=== PATIENT | male | born 1970 | race Caucasian/White ===

== ENCOUNTER → 2020-08-16 08:47 | Outpatient (BNVA) | payer BC, SELFPAY | PROVIDERS: Visit Provider Internal Medicine Gastroenterology | DX: Z76.89 Persons encountering health services in other specified circumstances (principal) ==

== ENCOUNTER 2020-09-27 06:29 | Outpatient (REF) | payer BC, SELFPAY ==
[2020-09-27 11:25] LABS: MANUAL DIFF FLAG NO
[2020-09-27 11:43] LABS: Basophils Percent Auto 0.8 % (0-2); Eosinophils Absolute Auto 0.2 X10*3/uL (0.0-0.4); Eosinophils Percent Auto 4.4 % (0-4); Hematocrit 43.9 % (42-52); Hemoglobin 14.2 g/dl (14.0-18.0); Imm Gran Abs Auto 0.01 X10*3/uL (0.00-0.03); Imm Gran Pct Auto 0.2 % (0.0-0.4); Lymphocytes Absolute Auto 1.4 X10*3/uL (1.2-4.9); Lymphocytes Percent Auto 28.4 % (20-40); Mean Corpuscular HGB Conc 32.3 g/dl (31.0-36.0); Mean Corpuscular Hemoglobin 29.2 pg (27.0-33.0); Mean Corpuscular Volume 90.1 fL (80-98); Mean Platelet Volume 10.5 fL (9.4-12.4); Monocytes Absolute Auto 0.4 X10*3/uL (0.1-1.2); Monocytes Percent Auto 9.1 % (2-11); Neutrophils Absolute Auto 2.8 X10*3/uL (2.0-8.3); Neutrophils Percent Auto 57.1 % (45-73); Platelet Count 196 X10*3/uL (160-400); Red Blood Count 4.87 X10*6/uL (4.60-5.80); Red Cell Distribution Width 12.6 % (11.0-16.0); White Blood Count 4.8 X10*3/uL (4.8-10.8)
[2020-09-27 12:11] LABS: Alanine Aminotransferase 32 U/L (0-40); Albumin Level 4.3 g/dL (3.5-5.0); Alkaline Phosphatase 72 U/L (39-117); Anion Gap 13 (12-20); Aspartate Amino Transferase 21 U/L (5-37); Bilirubin Total 0.7 mg/dL (0.0-1.0); Blood Urea Nitrogen 14 mg/dL (9-16); Calcium 8.7 mg/dL (8.4-10.2); Carbon Dioxide 28 mmol/L (22-29); Chloride 105 mmol/L (96-108); Cholesterol 199 mg/dL; Estimated Glomerular Filt Rate > 60; Glucose Fasting 92 mg/dL (60-99); HDL Cholesterol 67 mg/dL; LDL Cholesterol Calculated 122 mg/dl; Potassium 4.3 mmol/l (3.3-5.1); Sodium 142 mmol/L (135-145); Total Protein 6.8 g/dL (6.5-8.0); Triglycerides 50 mg/dL
[2020-09-27 12:13] LABS: TSH reflex Free T4 3.84 mIU/mL (0.32-4.0)
== END 2020-09-27 06:30 | disposition home or self-care (01) ==
LOC: HO.HMGCLDS 06:29
PROVIDERS: PCP Nurse Practitioner Family; Visit Provider Nurse Practitioner Family
DX: Z00.00 Encounter for general adult medical examination without abnormal findings (principal)
CPT/HCPCS: 36415; 80053; 80061; 84443; 85025

== ENCOUNTER → 2021-01-10 08:32 | Outpatient (BNVA) | payer BC, SELFPAY | PROVIDERS: PCP Nurse Practitioner Family; Visit Provider Internal Medicine Gastroenterology ==

== ENCOUNTER 2021-02-24 09:24 | Outpatient (REF) | payer BC, SELFPAY | END 2021-02-24 09:25 | disposition home or self-care (01) | LOC: HO.LAB 09:24 | PROVIDERS: Visit Provider Nurse Practitioner Family | DX: R30.9 Painful micturition, unspecified (principal); R31.9 Hematuria, unspecified | CPT/HCPCS: 87086 ==

== ENCOUNTER 2021-04-10 16:23 | Emergency (ER) | payer BC, SELFPAY ==
[2021-04-10 17:21] VITALS: BP 141/92; PULSE 82; RESP 18; TEMP 36.7; O2SAT 100; BMI 29.2
[2021-04-10 18:20] LABS: MANUAL DIFF FLAG NO
[2021-04-10 18:23] LABS: Basophils Absolute Auto 0.1 X10*3/uL (0.0-0.2); Basophils Percent Auto 0.7 % (0-2); Eosinophils Absolute Auto 0.1 X10*3/uL (0.0-0.4); Eosinophils Percent Auto 1.7 % (0-4); Hematocrit 40.7 % (42-52); Hemoglobin 13.4 g/dl (14.0-18.0); Imm Gran Abs Auto 0.01 X10*3/uL (0.00-0.03); Imm Gran Pct Auto 0.1 % (0.0-0.4); Lymphocytes Absolute Auto 1.1 X10*3/uL (1.2-4.9); Lymphocytes Percent Auto 15.4 % (20-40); Mean Corpuscular HGB Conc 32.9 g/dl (31.0-36.0); Mean Corpuscular Hemoglobin 28.9 pg (27.0-33.0); Mean Corpuscular Volume 87.7 fL (80-98); Mean Platelet Volume 9.9 fL (9.4-12.4); Monocytes Absolute Auto 0.4 X10*3/uL (0.1-1.2); Monocytes Percent Auto 5.5 % (2-11); Neutrophils Absolute Auto 5.4 X10*3/uL (2.0-8.3); Neutrophils Percent Auto 76.6 % (45-73); Platelet Count 185 X10*3/uL (160-400); Red Blood Count 4.64 X10*6/uL (4.60-5.80); Red Cell Distribution Width 12.6 % (11.0-16.0); White Blood Count 7.1 X10*3/uL (4.8-10.8)
[2021-04-10 18:30] LABS: Glucose Urine UA NEG (NEG); Leukocyte Esterase Urine TRACE (NEG); Nitrite Urine NEG (NEG); Specific Gravity - Urine 1.015 (1.005-1.025); UACC Culture Trigger YES; Urine Blood 3+ (NEG); Urine Ketones NEG (NEG); Urine Protein NEG (NEG-TRACE)
[2021-04-10 18:36] LABS: Appearance Urine HAZY; Color Urine YELLOW
[2021-04-10 18:41] LABS: Alanine Aminotransferase 21 U/L (0-40); Albumin Level 4.4 g/dL (3.5-5.0); Alkaline Phosphatase 76 U/L (39-117); Anion Gap 10 (12-20); Aspartate Amino Transferase 17 U/L (5-37); Bilirubin Total 0.5 mg/dL (0.0-1.0); Blood Urea Nitrogen 15 mg/dL (9-16); Calcium 9.3 mg/dL (8.4-10.2); Carbon Dioxide 27 mmol/L (22-29); Chloride 107 mmol/L (96-108); Creatinine Clr Calc Pharmacy 102.1; Estimated Glomerular Filt Rate > 60; Glucose Random 91 mg/dL (60-115); Potassium 4.2 mmol/L (3.3-5.1); Sodium 140 mmol/L (135-145); Total Protein 6.9 g/dL (6.5-8.0)
[2021-04-10 18:51] LABS: Bacteria Urine TRACE /LPF; Squamous Epithelial Cell Urine 1+ /LPF
--- NOTE | 2021-04-10 20:02 | PC.NURSE ---
PT WAS BLADDER SCANNED FOR 111ML OF URINE AFTER VOIDING.
--- NOTE | 2021-04-10 20:49 | ED_ITS ---
HPI - Male Genitourinary General Chief complaint: Urogenital-Male Stated complaint: blood in urine Time Seen by Provider: 04/10/21 19:23 Source: patient Mode of arrival: ambulatory Limitations: no limitations History of Present Illness HPI Narrative: 50 yo male previously healthy here with complaints of some urinary urgency, frequency and feeling like he cannot empty his bladder beginning last evening. While in the waiting room he felt the urge to urinate and was able to pass a large amount of urine but noticed some bright red blood in the urine with no clots. He denies any fevers, chills, abdominal pain, upper back pain, vomiting, nausea. Patient is not on any blood thinners. He was seen on February 24 for similar symptoms and was diagnosed with UTI at urgent care and was treated with 1 week of Bactrim. Patient felt like his symptoms improved but now they have returned the last few days. He does not have a urologist. Related Data Home Medications Medication Instructions Recorded Confirmed coconut oil 1,000 mg capsule 1,000 mg PO DAILY cap 09/25/20 09/25/20 turmeric (bulk) 95 % powder See Rx Instructions MISCELLANEOUS 09/25/20 09/25/20 (Curcumin) .COMPLEX Previous Rx's Medication Instructions Recorded pantoprazole 40 mg tablet,delayed 40 mg PO DAILY #30 tab 01/09/21 release sulfamethoxazole 800 1 tab PO Q12H 7 Days #14 tab 02/24/21 mg-trimethoprim 160 mg tablet (Bactrim DS) cefpodoxime 100 mg tablet 100 mg PO BID #14 tab 04/10/21 tamsulosin 0.4 mg capsule (Flomax) 0.4 mg PO DAILY #20 cap 04/10/21 Allergies Allergy/AdvReac Type Severity Reaction Status Date / Time No Known Allergies Allergy Verified 02/24/21 09:07 Review of Systems Review of Systems: Yes all other systems are reviewed and are negative Constitutional: Constitutional: Reports no additional constitutional complaints, Denies body ache(s), Denies chills, Denies fever(s), Denies headache(s) and Denies weakness Eyes: Eyes: Reports no additional eye complaints and Denies change in vision ENT: Reports system reviewed and no additional complaints, except as documented, Denies dizziness, Denies headache(s), Denies nasal congestion, Denies nasal discharge and Denies neck pain Cardiovascular: Cardiovascular: Reports no additional cardiovascular complaints, Denies chest pain, Denies leg edema and Denies dyspnea Respiratory: Respiratory: Reports no additional respiratory complaints, Denies cough and Denies dyspnea Gastrointestinal: Gastrointestinal: Reports no additional gastrointestinal complaints, Denies abdominal pain, Denies diarrhea, Denies nausea and Denies vomiting Genitourinary: Genitourinary: Reports hematuria, Reports dysuria, Denies flank pain, Reports urinary frequency, Denies urinary incontinence and Reports urinary urgency Musculoskeletal: Musculoskeletal: Reports no additional musculoskeletal complaints, Denies back pain, Denies arthralgias, Denies joint swelling, Denies neck pain, Denies numbness and Denies tingling Integumentary/Breasts: Skin/Breast: Reports system reviewed and no additional complaints, except as docu and Denies rash Neurologic: Reports system reviewed and no additional complaints, except as documented, Denies dizziness, Denies headache(s), Denies numbness, Denies tingling and Denies weakness PMFSH Past Medical History Attestation statement: The following information was validated with the patient. Source: old records reviewed and nursing notes reviewed Medical History GERD (gastroesophageal reflux disease) Surgical History History of esophagogastroduodenoscopy (EGD) History of eye surgery Family History Family History Father Smoker Asthma COPD (chronic obstructive pulmonary disease) Mother Heart problem HTN (hypertension) Maternal Grandmother Breast cancer Social History Social History Household Members: Spouse and Children Alcohol intake: current Alcohol intake frequency: holidays/special occasions only Advance Directives: No Advance Directives Information Provided: No Physical Exam Vital Signs: Vital Signs: Last Vital Signs Temp 98.1 F 04/10/21 17:21 Pulse 82 04/10/21 17:21 Resp 18 04/10/21 17:21 BP 141/92 H 04/10/21 17:21 Pulse Ox 100 04/10/21 17:21 Body Mass Index 29.2 Const: General: cooperative, healthy appearing, comfortable and no acute distress Orientation/consciousness: patient oriented x3 Limitations: no limitations HENMT: Head: Yes normal to inspection Ears: hearing grossly normal bilaterally General nose exam: Normal external nose present Face and sinus: Yes normal facial exam Mouth: Normal oral and palatal mucosa present Throat: Yes posterior oropharynx normal Eyes: General: appearance normal, both eyes and all related structures Pu pils: Equal, round and reactive pupils present Neck: Neck: Yes normal visual inspection Chest: Chest palpation & inspection: normal inspection of the chest Resp: Effort & Inspection: normal respiratory effort Auscultation: clear to auscultation bilaterally Cardio: Rate: regular rate Rhythm: regular rhythm Peripheral pulses: Peripheral pulses 2+ throughout GI: Inspection: Yes normal to inspection Palpation (GI): Soft to palpation and nontender Auscultation: normal bowel sounds : Other: Deferred exam General: Yes no CVA tenderness Back/Spine/Pelvis: Back: no CVA tenderness Thoracic/Lumbar Spine: thoracic and lumbar spine normal to inspection Skin: General skin exam: no rashes or lesions noted Neuro: General: patient oriented x3 and moves all extremities Cranial n erves: Yes Equal, round and reactive pupils present Cognition (Neuro): normal cognition Gait exam (Neuro): Normal gait present Extrem: General: Yes normal to inspection Course Course Course Narrative: 50-year-old male here with urinary urgency, frequency and some difficulty urinating today with hematuria noted in the urine. No fevers, chills, flank pain, abdominal pain or vomiting. On exam the patient has a nonfocal abdominal exam. He has no CVA tenderness. He is hemodynamically st able. UA is consistent with a UTI. The urine per lab is yellow but hazy. Patient does tell me that he has had slava hematuria but this does not seem consistent with urinalysis. His labs are unremarkable. His postvoid residual is 111 mL. -I discussed with the patient and his that if he is having hematuria we would consider placing a Amin catheter to perform bladder irrigation. At this time I do not feel it is completely necessary as the patient is able to void independently with no retention or difficulty. However we discussed that this may change at home and he may developed the symptoms. At that time he would require a Amin catheter and bladder irrigation. Therefore, we discussed doing it here in the emergency room during this visit. Patient would really not prefer a Amin catheter and would prefer to go home and monitor himself closely and return for any difficulty urinating. He is aware he may need to do this. Reviewed worrisome signs and symptoms of when to return to the emergency department. Comfortable discharge home. MDM - Male Genitourinary Medical Records Attestation: I reviewed the patient's medical records. Lab Data Attestation: I reviewed the patient's lab results. Result diagrams: 04/10/21 18:07 04/10/21 18:07 Labs: Lab Results 04/10/21 04/10/21 04/10/21 Range/Units 18:07 18:07 18:12 WBC 7.1 (4.8-10.8) X10*3/uL RBC 4.64 (4.60-5.80) X10*6/uL Hgb 13.4 L (14.0-18.0) g/dl Hct 40.7 L (42-52) % MCV 87.7 (80-98) fL MCH 28.9 (27.0-33.0) pg MCHC 32.9 (31.0-36.0) g/dl RDW 12.6 (11.0-16.0) % Plt Count 185 (160-400) X10*3/uL MPV 9.9 (9.4-12.4) fL Immature Gran % (Auto) 0.1 (0.0-0.4) % Neut % (Auto) 76.6 H (45-73) % Lymph % (Auto) 15.4 L (20-40) % [place] % (Auto) 5.5 (2-11) % Eos % (Auto) 1.7 (0-4) % Baso % (Auto) 0.7 (0-2) % Lymph # (Auto) 1.1 L (1.2-4.9) X10*3/uL [place] # (Auto) 0.4 (0.1-1.2) X10*3/uL Eos # (Auto) 0.1 (0.0-0.4) X10*3/uL Baso # (Auto) 0.1 (0.0-0.2) X10*3/uL Abs Immat Gran (auto) 0.01 (0.00-0.03) X10*3/uL Absolute Neuts (auto) 5.4 (2.0-8.3) X10*3/uL Absolute Nucleated RBC 0.000 (0.0-0.012) X10*3/uL Nucleated RBC % (auto) 0.0 (0.0-0.2) /100WBC Sodium 140 (135-145) mmol/L Potassium 4.2 (3.3-5.1) mmol/L Chloride 107 (96-108) mmol/L Carbon Dioxide 27 (22-29) mmol/L Anion Gap 10 L (12-20) BUN 15 (9-16) mg/dL Creatinine 1.03 (0.5-1.4) mg/dL Estim Creat Clear Calc 102.1 Estimated GFR > 60 Random Glucose 91 (60-115) mg/dL Calcium 9.3 D (8.4-10.2) mg/dL Total Bilirubin 0.5 (0.0-1.0) mg/dL AST 17 (5-37) U/L ALT 21 (0-40) U/L Alkaline Phosphatase 76 (39-117) U/L Total Protein 6.9 (6.5-8.0) g/dL Albumin 4.4 (3.5-5.0) g/dL Urine Color YELLOW Urine Appearance HAZY Urine pH 7.0 (5.0-8.0) Ur Specific [place] 1.015 (1.005-1.025) Urine Protein NEG (NEG-TRACE) MG/DL Urine Glucose (UA) NEG (NEG) MG/DL Urine Ketones NEG (NEG) MG/DL Urine Blood 3+ H (NEG) Urine Nitrite NEG (NEG) Ur Leukocyte Esterase TRACE H (NEG) Urine RBC 76-150 H (0) /HPF Urine WBC 10-14 H (0-4) /HPF Ur Squamous Epith Cells 1+ /LPF Urine Bacteria TRACE /LPF Discharge Plan Discharge Clinical Impression: Cystitis Patient Disposition: Home, Self-Care Instructions: Urinary Tract Infection in Men (ED), Interstitial Cystitis (ED) Additional Instructions: Increase fluids, rest Follow-up with Dr. Magaña tomorrow as discussed Return if you are unable to urinate Prescriptions: New cefpodoxime 100 mg tablet 100 mg PO BID Qty: 14 RF: 0 tamsulosin [Flomax] 0.4 mg capsule 0.4 mg PO DAILY Qty: 20 RF: 0 No Action pantoprazole 40 mg tablet,delayed release (DR/EC) 40 mg PO DAILY Qty: 30 RF: 3 sulfamethoxazole-trimethoprim [Bactrim DS] 800-160 mg tablet 1 tab PO Q12H 7 Days Qty: 14 RF: 0 coconut oil 1,000 mg capsule 1,000 mg PO DAILY RF: 0 Curcumin 95 % powder See Rx Instructions miscellaneous .COMPLEX RF: 0 Referrals: Augusto Magaña MD [Physician] - 2 days Stand Alone Forms: Work/School Release Interventions: ED Discharge Assessment Last Done: 04/10/21 20:31 Discharge Date/Time: 04/10/21 20:31
[2021-04-11 09:54] LABS: CT PCR NOT DETECTED (Not Detect.); NG PCR NOT DETECTED (Not Detect.)
== END 2021-04-10 20:31 | disposition home or self-care (01) ==
PROVIDERS: Emergency Provider Emergency Medicine; PCP Nurse Practitioner Family
DX: N30.10 Interstitial cystitis (chronic) without hematuria (principal); R39.15 Urgency of urination; R35.0 Frequency of micturition; Z79.899 Other long term (current) drug therapy; Z20.2 Contact with and (suspected) exposure to infections with a predominantly sexual mode of transmission
CPT/HCPCS: 36415; 80053; 81001; 85025; 87086; 87491; 87591; 99283

== ENCOUNTER 2021-04-17 06:03 | Outpatient (REF) | payer BC, SELFPAY ==
[2021-04-17 11:26] LABS: Urine Cytology See Pathology rpt
[2021-04-17 11:57] LABS: Glucose Urine UA NEG (NEG); Leukocyte Esterase Urine NEG (NEG); Nitrite Urine NEG (NEG); UACC Culture Trigger NO; Urine Blood TRACE (NEG); Urine Ketones NEG (NEG); Urine Protein NEG (NEG-TRACE)
[2021-04-17 12:03] LABS: Appearance Urine CLEAR; Color Urine YELLOW
[2021-04-17 12:20] LABS: RBC Urine 0-2 /HPF (0); Squamous Epithelial Cell Urine 1+ /LPF; WBC Urine 0-2 /HPF (0-4)
== END 2021-04-17 06:04 | disposition home or self-care (01) ==
LOC: HO.HMGCLDS 06:03
PROVIDERS: PCP Nurse Practitioner Family; Visit Provider Nurse Practitioner Family
DX: R31.9 Hematuria, unspecified (principal)
CPT/HCPCS: 81001; 81003; 87086; 88112

== ENCOUNTER 2021-04-24 06:51 | Outpatient (REF) | payer BC, SELFPAY ==
[2021-04-24 11:05] LABS: Urine Cytology See Pathology rpt
[2021-04-24 11:19] LABS: Glucose Urine UA NEG (NEG); Leukocyte Esterase Urine NEG (NEG); Nitrite Urine NEG (NEG); PH 6.5 (5.0-8.0); Urine Blood NEG (NEG); Urine Ketones NEG (NEG); Urine Protein NEG (NEG-TRACE)
[2021-04-24 11:32] LABS: Appearance Urine HAZY; Color Urine YELLOW
[2021-04-24 11:44] LABS: Amorphous Sediment Urine 2+ /LPF; RBC Urine 0 /HPF (0); Squamous Epithelial Cell Urine TRACE /LPF; WBC Urine 0-2 /HPF (0-4)
== END 2021-04-24 06:52 | disposition home or self-care (01) ==
LOC: HO.HMGCLDS 06:51
PROVIDERS: PCP Nurse Practitioner Family; Visit Provider Nurse Practitioner Family
DX: R31.29 Other microscopic hematuria (principal)
CPT/HCPCS: 81001; 88112

== ENCOUNTER 2021-04-28 09:44 | Outpatient (REF) | payer BC, SELFPAY ==
--- NOTE | ~2021-04-28 | US_ITS ---
EXAMINATION: US RETROPERITONEAL COMPLETE (RENAL) CLINICAL INFORMATION: Hematuria, unspecified. COMPARISON: None TECHNIQUE: Real-time imaging of the kidneys and bladder. FINDINGS: RIGHT KIDNEY: 11.7 x 4.9 x 5.9 cm (SAG x AP x TRV). The kidney is normal in size, contour, and echogenicity. Renal cortical thickness is normal. No renal calculi or hydronephrosis. At the interpolar aspect, a 5.4 cm in maximal diameter simple cyst is seen. There are further simple cysts. At the lower pole, a 3.6 x 3.2 x 3.6 cm mildly complex (Bosniak 2) cyst with fine septation is seen. This shows no mural nodularity or associated color Doppler flow. LEFT KIDNEY: 11.8 x 5.7 x 6.2 cm (SAG x AP x TRV). The kidney is normal in size, contour, and echogenicity. Renal cortical thickness is normal. No renal calculi or hydronephrosis. There are multiple simple cysts, the largest at the lower pole showing a maximal diameter 2.9 cm. BLADDER: Well distended. Bilateral ureteral jets are demonstrated. Prevoid bladder volume is 410 mL. Postvoid bladder volume is 142 mL. OTHER: Prostate dimensions are 3.4 x 4.7 x 3.6 cm (volume 29.8 mL). There are prostatic calcifications. US/US retroperitoneal comp IMPRESSION: 1. Multiple simple bilateral renal cysts are seen, and there is a further 3.6 cm mildly complex (Bosniak 2) right renal lower pole cyst, with fine septation. As a precaution, a repeat renal ultrasound examination is recommended in 6 months to ensure stability of this finding. 2. No renal calculus or hydronephrosis is seen bilaterally. 3. There is an increased postvoid residual volume..
== END 2021-04-28 09:45 | disposition home or self-care (01) ==
LOC: HO.HMGCX 09:44
PROVIDERS: PCP Nurse Practitioner Family; Visit Provider Nurse Practitioner Family
DX: R31.9 Hematuria, unspecified (principal); R30.9 Painful micturition, unspecified
CPT/HCPCS: 76770

== ENCOUNTER → 2021-05-16 13:47 | Outpatient (BNVA) | payer BC, SELFPAY | PROVIDERS: PCP Nurse Practitioner Family; Visit Provider Urology ==

== ENCOUNTER → 2021-07-08 14:52 | Outpatient (BNVA) | payer BC, SELFPAY | PROVIDERS: PCP Nurse Practitioner Family; Visit Provider Urology | DX: N40.1 Benign prostatic hyperplasia with lower urinary tract symptoms (principal); N13.8 Other obstructive and reflux uropathy; N28.1 Cyst of kidney, acquired; R31.29 Other microscopic hematuria | CPT/HCPCS: 52000 ==

== ENCOUNTER 2021-07-09 00:17 | Emergency (ER) | payer BC, SELFPAY ==
[2021-07-09 00:23] VITALS: BP 124/80; PULSE 95; RESP 16; O2SAT 100; BMI 26.6
--- NOTE | 2021-07-09 00:27 | PC.NURSE ---
at bedside for primary eval.
--- NOTE | 2021-07-09 00:35 | ED.MALEGU ---
HPI - Male Genitourinary General Chief complaint: Urogenital-Male Stated complaint: bleeding after surgery Time Seen by Provider: 07/09/21 00:33 Source: patient Mode of arrival: ambulatory History of Present Illness HPI Narrative: 50-year-old male presents after having undergone cystoscopy earlier in the day with dilation of the urethra and states that he woke up on the couch and thought that he had accidentally urinated and found that he was bleeding from his penis. Patient denies any bleeding history, blood thinners, or abdominal pain. Related Data Home Medications Medication Instructions Recorded Confirmed coconut oil 1,000 mg capsule 1,000 mg PO DAILY cap 09/25/20 09/25/20 turmeric (bulk) 95 % powder See Rx Instructions MISCELLANEOUS 09/25/20 09/25/20 (Curcumin) .COMPLEX Previous Rx's Medication Instructions Recorded sulfamethoxazole 800 1 tab PO Q12H 7 Days #14 tab 02/24/21 mg-trimethoprim 160 mg tablet (Bactrim DS) cefpodoxime 100 mg tablet 100 mg PO BID #14 tab 04/10/21 pantoprazole 40 mg tablet,delayed 40 mg PO DAILY #30 tab 05/19/21 release phenazopyridine 100 mg tablet 100 mg PO Q8H 0 Days #6 tab 07/08/21 tamsulosin 0.4 mg capsule (Flomax) 0.8 mg PO DAILY 90 Days #180 cap 07/08/21 Allergies Allergy/AdvReac Type Severity Reaction Status Date / Time No Known Allergies Allergy Verified 07/08/21 15:40 Review of Systems Review of Systems: Pertinent positives and negatives as stated in HPI 10 point review of systems is otherwise negative. [facility] Past Medical History Source: nursing notes reviewed Medical History GERD (gastroesophageal reflux disease) Surgical History History of esophagogastroduodenoscopy (EGD) History of eye surgery Family History Family History Father Smoker Asthma COPD (chronic obstructive pulmonary disease) Mother Heart problem HTN (hypertension) Maternal Grandmother Breast cancer Social History Social History Household Members: Spouse and Children Alcohol intake: never Patient Tobacco Use Status: Never used Tobacco Use of substances other than those prescribed or required for medical reasons: No Advance Directives: No Advance Directives Information Provided: Yes Physical Exam Vital Signs: Vital Signs: Last Vital Signs Pulse 86 07/09/21 00:44 Resp 18 07/09/21 00:44 BP 124/80 07/09/21 00:44 Pulse Ox 100 07/09/21 00:44 Body Mass Index 26.6 VITAL SIGNS: Reviewed. GENERAL: Well developed, well nourished, in no acute distress. HEAD: Normocephalic/atraumatic EYES: PERRLA, EOMI OROPHARYNX: no oral lesions noted, posterior pharynx clear NECK: Supple, no adenopathy LUNGS: Normal breath sounds. SpO2<100> CARDIOVASCULAR: Regular rate and rhythm without noted murmurs ABDOMEN: Soft, non-tender, non-distended with bowel sounds. NEUROLOGIC: Alert and oriented x 4. Course Course Course Narrative: 50-year-old male with history and clinical presentation consistent with hematuria, however doubt this is from bladder and suspect may be from dilation procedure. Patient received IV fluids, labs, UA. Of all investigations without acute findings when compared to prior other than urinalysis does demonstrate hematuria. On observation patient has had improvement in the bleeding and I discussed the case briefly with Dr. Magaña who is agreeable for patient to follow-up in the morning. MDM - Male Genitourinary Lab Data Result diagrams: 07/09/21 00:41 07/09/21 00:41 Labs: Lab Results 07/09/21 07/09/21 Range/Units 00:41 00:41 WBC 6.2 (4.8-10.8) X10*3/uL RBC 4.44 L (4.60-5.80) X10*6/uL Hgb 12.9 L (14.0-18.0) g/dl Hct 39.6 L (42.0-52.0) % MCV 89.2 (80.0-98.0) fL MCH 29.1 (27.0-33.0) pg MCHC 32.6 (31.0-36.0) g/dl RDW 12.2 (11.0-16.0) % Plt Count 182 (160-400) X10*3/uL MPV 9.6 (9.4-12.4) fL Immature Gran % (Auto) 0.2 (0.0-0.4) % Neut % (Auto) 66.1 (45-73) % Lymph % (Auto) 24.8 (20-40) % [place] % (Auto) 5.5 (2-11) % Eos % (Auto) 2.9 (0-4) % Baso % (Auto) 0.5 (0-2) % Lymph # (Auto) 1.5 (1.2-4.9) X10*3/uL [place] # (Auto) 0.3 (0.1-1.2) X10*3/uL Eos # (Auto) 0.2 (0.0-0.4) X10*3/uL Baso # (Auto) 0.0 (0.0-0.2) X10*3/uL Abs Immat Gran (auto) 0.01 (0.00-0.03) X10*3/uL Absolute Neuts (auto) 4.11 (2.0-8.3) x10*3/uL Absolute Nucleated RBC 0.000 (0.0-0.012) X10*3/uL Nucleated RBC % (auto) 0.0 (0.0-0.2) /100WBC Sodium 139 (135-145) mmol/L Potassium 4.1 (3.3-5.1) mmol/L Chloride 107 (96-108) mmol/L Carbon Dioxide 23 (22-29) mmol/L Anion Gap 13 (12-20) BUN 16 (9-16) mg/dL Creatinine 1.03 (0.5-1.4) mg/dL Estim Creat Clear Calc 83.9 Estimated GFR > 60 Random Glucose 192 H D (60-115) mg/dL Calcium 8.7 D (8.4-10.2) mg/dL Total Bilirubin 0.3 (0.0-1.0) mg/dL AST 17 (5-37) U/L ALT 25 (0-40) U/L Alkaline Phosphatase 78 (39-117) U/L Total Protein 6.5 (6.5-8.0) g/dL Albumin 4.0 (3.5-5.0) g/dL Discharge Plan Discharge Clinical Impression: Hematuria Patient Disposition: Home, Self-Care Instructions: Hematuria (ED) Additional Instructions: 1. Follow-up with Dr. Magaña in the morning. Return to the ER for acute worsening of symptoms. Prescriptions: No Action sulfamethoxazole-trimethoprim [Bactrim DS] 800-160 mg tablet 1 tab PO Q12H 7 Days Qty: 14 RF: 0 pantoprazole 40 mg tablet,delayed release (DR/EC) 40 mg PO DAILY Qty: 30 RF: 3 cefpodoxime 100 mg tablet 100 mg PO BID Qty: 14 RF: 0 coconut oil 1,000 mg capsule 1,000 mg PO DAILY RF: 0 Curcumin 95 % powder See Rx Instructions miscellaneous .COMPLEX RF: 0 tamsulosin [Flomax] 0.4 mg capsule 0.8 mg PO DAILY 90 Days Qty: 180 RF: 1 phenazopyridine 100 mg tablet 100 mg PO Q8H 0 Days Qty: 6 RF: 0 Referrals: Augusto Magaña MD [Physician] - 2 days
[2021-07-09 00:44] VITALS: BP 124/80; PULSE 86; RESP 18; O2SAT 100
[2021-07-09] MEDS: 0.9 % Sodium Chloride 1,000 ML 999 ML IV (00:44)
[2021-07-09 00:48] LABS: MANUAL DIFF FLAG NO
[2021-07-09 00:51] LABS: Basophils Percent Auto 0.5 % (0-2); Eosinophils Absolute Auto 0.2 X10*3/uL (0.0-0.4); Eosinophils Percent Auto 2.9 % (0-4); Hematocrit 39.6 % (42.0-52.0); Hemoglobin 12.9 g/dl (14.0-18.0); Imm Gran Abs Auto 0.01 X10*3/uL (0.00-0.03); Imm Gran Pct Auto 0.2 % (0.0-0.4); Lymphocytes Absolute Auto 1.5 X10*3/uL (1.2-4.9); Lymphocytes Percent Auto 24.8 % (20-40); Mean Corpuscular HGB Conc 32.6 g/dl (31.0-36.0); Mean Corpuscular Hemoglobin 29.1 pg (27.0-33.0); Mean Corpuscular Volume 89.2 fL (80.0-98.0); Mean Platelet Volume 9.6 fL (9.4-12.4); Monocytes Absolute Auto 0.3 X10*3/uL (0.1-1.2); Monocytes Percent Auto 5.5 % (2-11); Neutrophils Absolute Auto 4.11 x10*3/uL (2.0-8.3); Neutrophils Percent Auto 66.1 % (45-73); Platelet Count 182 X10*3/uL (160-400); Red Blood Count 4.44 X10*6/uL (4.60-5.80); Red Cell Distribution Width 12.2 % (11.0-16.0); White Blood Count 6.2 X10*3/uL (4.8-10.8)
[2021-07-09 02:09] LABS: Alanine Aminotransferase 25 U/L (0-40); Alkaline Phosphatase 78 U/L (39-117); Anion Gap 13 (12-20); Aspartate Amino Transferase 17 U/L (5-37); Bilirubin Total 0.3 mg/dL (0.0-1.0); Blood Urea Nitrogen 16 mg/dL (9-16); Calcium 8.7 mg/dL (8.4-10.2); Carbon Dioxide 23 mmol/L (22-29); Chloride 107 mmol/L (96-108); Creatinine Clr Calc Pharmacy 83.9; Estimated Glomerular Filt Rate > 60; Glucose Random 192 mg/dL (60-115); Potassium 4.1 mmol/L (3.3-5.1); Sodium 139 mmol/L (135-145); Total Protein 6.5 g/dL (6.5-8.0)
[2021-07-09 02:44] LABS: Appearance Urine CLOUDY; Color Urine DK YELLOW; Glucose Urine UA NEG (NEG); Leukocyte Esterase Urine TRACE (NEG); Nitrite Urine POS (NEG); PH 6.5 (5.0-8.0); Specific Gravity - Urine 1.025 (1.005-1.025); UACC Culture Trigger YES; Urine Blood 3+ (NEG); Urine Ketones NEG (NEG); Urine Protein 2+ MG/DL (NEG-TRACE)
[2021-07-09 02:53] LABS: Bacteria Urine 1+ /LPF; Squamous Epithelial Cell Urine 1+ /LPF
--- NOTE | 2021-07-09 02:57 | ED_ITS ---
HPI - Male Genitourinary General Chief complaint: Urogenital-Male Stated complaint: bleeding after surgery Time Seen by Provider: 07/09/21 00:33 Source: patient Mode of arrival: ambulatory Related Data Home Medications Medication Instructions Recorded Confirmed coconut oil 1,000 mg capsule 1,000 mg PO DAILY cap 09/25/20 09/25/20 turmeric (bulk) 95 % powder See Rx Instructions MISCELLANEOUS 09/25/20 09/25/20 (Curcumin) .COMPLEX Previous Rx's Medication Instructions Recorded sulfamethoxazole 800 1 tab PO Q12H 7 Days #14 tab 02/24/21 mg-trimethoprim 160 mg tablet (Bactrim DS) cefpodoxime 100 mg tablet 100 mg PO BID #14 tab 04/10/21 pantoprazole 40 mg tablet,delayed 40 mg PO DAILY #30 tab 05/19/21 release phenazopyridine 100 mg tablet 100 mg PO Q8H 0 Days #6 tab 07/08/21 tamsulosin 0.4 mg capsule (Flomax) 0.8 mg PO DAILY 90 Days #180 cap 07/08/21 sulfamethoxazole 800 1 tab PO Q12H 7 Days #14 tab 07/09/21 mg-trimethoprim 160 mg tablet (Bactrim DS) Allergies Allergy/AdvReac Type Severity Reaction Status Date / Time No Known Allergies Allergy Verified 07/08/21 15:40 [facility] Past Medical History Medical History GERD (gastroesophageal reflux disease) Surgical History History of esophagogastroduodenoscopy (EGD) History of eye surgery Family History Family History Father Smoker Asthma COPD (chronic obstructive pulmonary disease) Mother Heart problem HTN (hypertension) Maternal Grandmother Breast cancer Social History Social History Household Members: Spouse and Children Alcohol intake: never Patient Tobacco Use Status: Never used Tobacco Use of substances other than those prescribed or required for medical reasons: No Advance Directives: No Advance Directives Information Provided: Yes Physical Exam Vital Signs: Vital Signs: Last Vital Signs Pulse 86 07/09/21 00:44 Resp 18 07/09/21 00:44 BP 124/80 07/09/21 00:44 Pulse Ox 100 07/09/21 00:44 Body Mass Index 26.6 MDM - Male Genitourinary Lab Data Result diagrams: 07/09/21 00:41 07/09/21 00:41 Labs: Lab Results 07/09/21 07/09/21 07/09/21 Range/Units 00:41 00:41 02:37 WBC 6.2 (4.8-10.8) X10*3/uL RBC 4.44 L (4.60-5.80) X10*6/uL Hgb 12.9 L (14.0-18.0) g/dl Hct 39.6 L (42.0-52.0) % MCV 89.2 (80.0-98.0) fL MCH 29.1 (27.0-33.0) pg MCHC 32.6 (31.0-36.0) g/dl RDW 12.2 (11.0-16.0) % Plt Count 182 (160-400) X10*3/uL MPV 9.6 (9.4-12.4) fL Immature Gran % (Auto) 0.2 (0.0-0.4) % Neut % (Auto) 66.1 (45-73) % Lymph % (Auto) 24.8 (20-40) % [place] % (Auto) 5.5 (2-11) % Eos % (Auto) 2.9 (0-4) % Baso % (Auto) 0.5 (0-2) % Lymph # (Auto) 1.5 (1.2-4.9) X10*3/uL [place] # (Auto) 0.3 (0.1-1.2) X10*3/uL Eos # (Auto) 0.2 (0.0-0.4) X10*3/uL Baso # (Auto) 0.0 (0.0-0.2) X10*3/uL Abs Immat Gran (auto) 0.01 (0.00-0.03) X10*3/uL Absolute Neuts (auto) 4.11 (2.0-8.3) x10*3/uL Absolute Nucleated RBC 0.000 (0.0-0.012) X10*3/uL Nucleated RBC % (auto) 0.0 (0.0-0.2) /100WBC Sodium 139 (135-145) mmol/L Potassium 4.1 (3.3-5.1) mmol/L Chloride 107 (96-108) mmol/L Carbon Dioxide 23 (22-29) mmol/L Anion Gap 13 (12-20) BUN 16 (9-16) mg/dL Creatinine 1.03 (0.5-1.4) mg/dL Estim Creat Clear Calc 83.9 Estimated GFR > 60 Random Glucose 192 H D (60-115) mg/dL Calcium 8.7 D (8.4-10.2) mg/dL Total Bilirubin 0.3 (0.0-1.0) mg/dL AST 17 (5-37) U/L ALT 25 (0-40) U/L Alkaline Phosphatase 78 (39-117) U/L Total Protein 6.5 (6.5-8.0) g/dL Albumin 4.0 (3.5-5.0) g/dL Urine Color DK YELLOW Urine Appearance CLOUDY Urine pH 6.5 (5.0-8.0) Ur Specific [place] 1.025 (1.005-1.025) Urine Protein 2+ H (NEG-TRACE) MG/DL Urine Glucose (UA) NEG (NEG) MG/DL Urine Ketones NEG (NEG) MG/DL Urine Blood 3+ H (NEG) Urine Nitrite POS H (NEG) Ur Leukocyte Esterase TRACE H (NEG) Urine RBC 76-150 H (0) /HPF Urine WBC 5-9 H (0-4) /HPF Ur Squamous Epith Cells 1+ /LPF Urine Bacteria 1+ /LPF Discharge Plan Discharge Clinical Impression: Hematuria Patient Disposition: Home, Self-Care Instructions: Hematuria (ED) Additional Instructions: 1. Follow-up with Dr. Magaña in the morning. Return to the ER for acute worsening of symptoms. Prescriptions: New sulfamethoxazole-trimethoprim [Bactrim DS] 800-160 mg tablet 1 tab PO Q12H 7 Days Qty: 14 RF: 0 No Action sulfamethoxazole-trimethoprim [Bactrim DS] 800-160 mg tablet 1 tab PO Q12H 7 Days Qty: 14 RF: 0 pantoprazole 40 mg tablet,delayed release (DR/EC) 40 mg PO DAILY Qty: 30 RF: 3 cefpodoxime 100 mg tablet 100 mg PO BID Qty: 14 RF: 0 coconut oil 1,000 mg capsule 1,000 mg PO DAILY RF: 0 Curcumin 95 % powder See Rx Instructions miscellaneous .COMPLEX RF: 0 tamsulosin [Flomax] 0.4 mg capsule 0.8 mg PO DAILY 90 Days Qty: 180 RF: 1 phenazopyridine 100 mg tablet 100 mg PO Q8H 0 Days Qty: 6 RF: 0 Referrals: Augusto Magaña MD [Physician] - 2 days
[2021-07-09] MEDS: Sulfamethox/Trimeth 800/160 TABLET 1 TAB PO (03:07)
[2021-07-09 03:11] VITALS: BP 121/72; PULSE 86; RESP 18; O2SAT 98
== END 2021-07-09 03:14 | disposition home or self-care (01) ==
PROVIDERS: Emergency Provider Student in an Organized Health Care Education/Training Program; PCP Nurse Practitioner Family
DX: R31.9 Hematuria, unspecified (principal)
CPT/HCPCS: 36415; 80053; 81001; 85025; 87086; 87088; 87186; 96360; 99284

== ENCOUNTER → 2022-01-16 08:24 | Outpatient (BNVA) | payer BC, SELFPAY | PROVIDERS: PCP Nurse Practitioner Family; Visit Provider Urology | DX: N40.1 Benign prostatic hyperplasia with lower urinary tract symptoms (principal); N13.8 Other obstructive and reflux uropathy; N35.919 Unspecified urethral stricture, male, unspecified site; N28.1 Cyst of kidney, acquired | CPT/HCPCS: 51798 ==

== ENCOUNTER 2022-06-17 11:34 | Outpatient (REF) | payer BC, SELFPAY ==
[2022-06-17 14:15] LABS: Appearance Urine Clear; Color Urine Yellow; Glucose Urine UA Negative (Negative); Leukocyte Esterase Urine Negative (Negative); MANUAL DIFF FLAG NO; Nitrite Urine Negative (Negative); Urine Blood Negative (Negative); Urine Ketones Negative (Negative); Urine Protein Negative (Neg-Trace)
[2022-06-17 14:20] LABS: Basophils Percent Auto 0.6 % (0-2); Eosinophils Absolute Auto 0.2 X10*3/uL (0.0-0.4); Eosinophils Percent Auto 3.8 % (0-4); Hematocrit 42.2 % (42.0-52.0); Hemoglobin 13.8 g/dl (14.0-18.0); Imm Gran Abs Auto 0.01 X10*3/uL (0.00-0.03); Imm Gran Pct Auto 0.2 % (0.0-0.4); Lymphocytes Absolute Auto 1.4 X10*3/uL (1.2-4.9); Lymphocytes Percent Auto 28.2 % (20-40); Mean Corpuscular HGB Conc 32.7 g/dl (31.0-36.0); Mean Corpuscular Hemoglobin 28.9 pg (27.0-33.0); Mean Corpuscular Volume 88.3 fL (80.0-98.0); Mean Platelet Volume 10.2 fL (9.4-12.4); Monocytes Absolute Auto 0.4 X10*3/uL (0.1-1.2); Monocytes Percent Auto 7.8 % (2-11); Neutrophils Percent Auto 59.4 % (45-73); Platelet Count 179 X10*3/uL (160-400); Red Blood Count 4.78 X10*6/uL (4.60-5.80); Red Cell Distribution Width 12.6 % (11.0-16.0)
[2022-06-17 14:42] LABS: Alanine Aminotransferase 33 U/L (0-40); Albumin Level 4.3 g/dL (3.5-5.0); Alkaline Phosphatase 69 U/L (39-117); Anion Gap 13 (12-20); Aspartate Amino Transferase 21 U/L (5-37); Bilirubin Total 0.8 mg/dL (0.0-1.0); Blood Urea Nitrogen 17 mg/dL (9-16); Calcium 9.3 mg/dL (8.4-10.2); Carbon Dioxide 27 mmol/L (22-29); Chloride 105 mmol/L (96-108); Cholesterol 202 mg/dL; Estimated Glomerular Filt Rate > 60; Glucose Fasting 86 mg/dL (60-99); HDL Cholesterol 74 mg/dL; LDL Cholesterol Calculated 121 mg/dl; Potassium 4.4 mmol/L (3.3-5.1); Sodium 141 mmol/L (135-145); Total Protein 6.8 g/dL (6.5-8.0); Triglycerides 38 mg/dL
[2022-06-17 15:04] LABS: Prostate Specific Antigen Scr 0.16 ng/mL (<0.05-4.0); TSH reflex Free T4 4.13 uIU/mL (0.32-4.0)
[2022-06-17 15:37] LABS: Free T4 (Free Thyroxine) 0.95 ng/dL (0.71-1.85)
== END 2022-06-17 11:35 | disposition home or self-care (01) ==
LOC: HO.HMGCLDS 11:34
PROVIDERS: PCP Nurse Practitioner Family; Visit Provider Nurse Practitioner Family
DX: Z00.00 Encounter for general adult medical examination without abnormal findings (principal); Z12.5 Encounter for screening for malignant neoplasm of prostate
CPT/HCPCS: 36415; 80053; 80061; 81003; 84153; 84439; 84443; 85025

== ENCOUNTER 2022-07-10 15:20 | Outpatient (REF) | payer BC, SELFPAY ==
--- NOTE | ~2022-07-10 | US_ITS ---
EXAMINATION: US RETROPERITONEAL LIMITED (RENAL ONLY) CLINICAL INFORMATION: Cyst of kidney, acquired. COMPARISON: Ultrasound retroperitoneal complete (renal) 04/28/2021. TECHNIQUE: Real-time imaging of the kidneys. FINDINGS: RIGHT KIDNEY: 11.3 x 4.9 x 6.4 cm (SAG x AP x TRV). The kidney is normal in size, contour, and echogenicity. Renal cortical thickness is normal. There are multiple cysts. Largest measures 5 x 4.1 x 5.3 cm in the midpole. Septation in the 3.7 x 3.6 x 3.2 cm lower pole cyst not appreciated. Otherwise cysts do not appear appreciably changed. No renal calculi or hydronephrosis. LEFT KIDNEY: 10.0 x 5.2 x 6.1 cm (SAG x AP x TRV). The kidney is normal in size, contour, and echogenicity. Renal cortical thickness is normal. There is a 3 x 2.3 x 2.4 cm cyst in the lower pole. No renal calculi or hydronephrosis. US/US renal BI IMPRESSION: Bilateral renal cysts, right greater than left.
== END 2022-07-10 15:21 | disposition home or self-care (01) ==
LOC: HO.HMGCX 15:20
PROVIDERS: PCP Nurse Practitioner Family; Visit Provider Urology
DX: N28.1 Cyst of kidney, acquired (principal)
CPT/HCPCS: 76775

== ENCOUNTER 2022-09-17 11:13 | Outpatient (REF) | payer BC, SELFPAY ==
[2022-09-17 14:46] LABS: TSH reflex Free T4 3.86 uIU/mL (0.32-4.0)
[2022-09-19 04:58] LABS: Thyroid Peroxidase Antibodies 2 IU/mL (<9)
== END 2022-09-17 11:14 | disposition home or self-care (01) ==
LOC: HO.HMGCLDS 11:13
PROVIDERS: PCP Nurse Practitioner Family; Visit Provider Nurse Practitioner Family
DX: R79.89 Other specified abnormal findings of blood chemistry (principal)
CPT/HCPCS: 36415; 84443; 86376

== ENCOUNTER 2022-10-05 07:24 | Day surgery (SDC) | payer BC, SELFPAY ==
[2022-09-29 10:52] VITALS: BMI 32.5
--- NOTE | 2022-10-02 09:28 | P.CONAN_ITS ---
Documented by User: Aysha Addison NP 10/02/22 09:31 HPI - Anesthesia Eval Consult details Narrative: 51yo M for Cystoscopy, Transurethral Incision Prost, TUR Prostate w/Greenlight Laser PMFSH Active Problems Active Problems: All Active Problems (Updated 07/22/22 @ 16:22 by Augusto Magaña MD) GERD with esophagitis (Acute) Physical exam (Acute) Painful urination (Acute) Hematuria (Acute) Microscopic hematuria (Acute) Hematuria (Acute) Renal cyst (Acute) BPH w urinary obs/LUTS (Acute) Screening for colon cancer (Acute) Screening for prostate cancer (Acute) Elevated TSH (Acute) Bladder outlet obstruction (Acute) Urethral stricture (Acute) Past Medical History Medical History GERD (gastroesophageal reflux disease) Urethral stricture Family History Family History Father Smoker Asthma COPD (chronic obstructive pulmonary disease) Mother Heart problem HTN (hypertension) Maternal Grandmother Breast cancer Surgical History Surgical History History of esophagogastroduodenoscopy (EGD) History of eye surgery Social History Social History Household Members: Spouse and Children Housing: House Are you a primary career placement services counselor to a significant other at home: No Do you presently have visiting nurse or other home services: No Alcohol intake: never Patient Tobacco Use Status: Never used Tobacco e-Cigarette/Vaping Use: Never Used Second Hand Smoke Exposure: No Use of substances other than those prescribed or required for medical reasons: No Have you been hit, kicked, punched, or otherwise hurt by someone within the past year? 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 Cognitive needs: No Hearing needs: No Vision needs: Yes (glasses) Meds Allergies Allergy/AdvReac Type Severity Reaction Status Date / Time No Known Allergies Allergy Verified 10/05/22 07:29 Exam Exam Date and Time: October 02, 202228 Height,Weight and Vital Signs: Height 5 ft 8 in Weight 97.069 kg Pertinent Lab Results Pertinent Lab Results: Laboratory Tests 06/17/22 06/17/22 11:38 11:38 WBC 5.0 Hgb 13.8 L Hct 42.2 Plt Count 179 Sodium 141 Potassium 4.4 Chloride 105 Carbon Dioxide 27 BUN 17 H Creatinine 0.95 Assessment and Plan Assessment Anesthesia Assessment: Chart Reviewed Documented by User: Gagan Regalado MD 10/05/22 09:12 [facility] Past Medical History Medical History GERD (gastroesophageal reflux disease) Urethral stricture Family History Family History Father Smoker Asthma COPD (chronic obstructive pulmonary disease) Mother Heart problem HTN (hypertension) Maternal Grandmother Breast cancer Family history of problems with anesthesia: No Surgical History Surgical History History of esophagogastroduodenoscopy (EGD) History of eye surgery History of Problems with Anesthesia: No Social History Social History Household Members: Spouse and Children Housing: House Are you a primary career placement services counselor to a significant other at home: No Do you presently have visiting nurse or other home services: No Alcohol intake: never Patient Tobacco Use Status: Never used Tobacco e-Cigarette/Vaping Use: Never Used Second Hand Smoke Exposure: No Use of substances other than those prescribed or required for medical reasons: No Have you been hit, kicked, punched, or otherwise hurt by someone within the past year? 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 Cognitive needs: No Hearing needs: No Vision needs: Yes (glasses) Meds Allergies Allergy/AdvReac Type Severity Reaction Status Date / Time No Known Allergies Allergy Verified 10/05/22 07:29 Exam Airway Mallampati Class: I TM Dist: >3cm Heart: ok Lungs: ok Assessment and Plan Assessment Anesthesia Assessment: Anesthesia Plan Discussed and Chart Reviewed Final Anesthetic Review Family History of Problems with Anesthesia: No History of Problems with Anesthesia: No NPO: Yes ASA Class: II Final Preanesthetic Review: No Changes in Pt Med Stat, Meds/Allgs Chart Reviewed, Consent Obtained/Reviewed and Anes Risks/Benef Reviewed Patient Risk: Low Procedure Risk: Low Anesthetic Plan Anesthetic Plan: GA and Agree w/ Assess. and Plan Disposition: Standard PACU
[2022-10-05 07:34] VITALS: BP 124/85; PULSE 85; RESP 15; TEMP 36.5; O2SAT 97
[2022-10-05] MEDS: Lactated Ringers 1,000 ML 100 ML IVCONT (07:54)
--- NOTE | 2022-10-05 09:09 | MHC.SHP ---
Pre-Procedural Eval Section A Date of Service: 10/05/22 The patient is an INPATIENT: No Changes since office visit: No Cold of Flu in the past 2 weeks, No New Medical Problems, No Changes in Medication and No Patient answered all questions The History & Physical has been completed within 30 days and I have reviewed it.: Yes Section B Chief Complaint: Bladder-neck obstruction Details of Present Illness: bladder neck obstruction with skin tag left upper thigh Relevant Family History (Specify if Yes): No Relevant Social History: None Present Medications: see Short Stay Collaborative assessment Medical History: No relevant PMH History of Previous Operations: No relevant previous surgery Allergies: Allergies Allergy/AdvReac Type Severity Reaction Status Date / Time No Known Allergies Allergy Verified 10/05/22 07:29 Review of Systems Sugical H&P ROS: Negative: Constitution, Cardiovascular, Respiratory, Neurological, Psychiatric, Hem-Onc, Allergic/Immunologic, Gastrointestinal, Genitourinary, Musculoskeletal, Integumentary, Endocrine and Eyes/Ears/Nose/Throat Exam Surgical H&P Exam: Normal: HEENT, Normal: Heart, Normal: Lungs, Normal: Extremities, Normal: Abdomen, Normal: Skin and Normal: Neurological Plan Diagnosis/Plan: Unchanged ( cystoscopy, laser incision of the prostate and removal of skin tag left upper thigh) I have reviewed the history and physical and performed a pertinent physical examination on my patient. No changes have occurred unless specified. Time Spent With Patient Time: Total time managing care of this patient today ____ minutes.
--- NOTE | 2022-10-05 10:16 | P.OP_ITS ---
Operative Note Operative Note Date of Service: 10/05/22 Narrative: PreOperative Diagnosis: Bladder outlet obstruction, left thigh skin tag Post Operative Diagnosis: Bladder outlet obstruction, urethral stricture, left skin tag thigh Procedure: 1. dilatation of urethral stricture 2. GreenLight Laser Enucleation of the prostate 3. removal of 8 mm left inner skin tag Surgeon: Dr Augusto Magaña Anesthesia: General History of bladder outlet obstruction. Treated with alpha-sin and other medications. Still with symptoms. On cys toscopy in office has tight bladder neck. Recommendation for prostate procedure with laser incision of the prostate Risks and benefits have been discussed. Focus was placed on development of ret rograde ejaculation which is a normal part of this procedure. Procedure: After informed consent was verified the patient was brought to the operating room and placed in a supine position. Anesthesia was administered per protocol. Patient was placed in modified dorsal lithotomy position and prepped and draped in a sterile fashion. Safety pause time-out was confirmed. Antibiotics have been given. A Twenty-four Albanian laser cystoscope was inserted per urethra. Urethral stricture at bulbar urethra. Wire placed into bladder - dilation performed with urethral dilators up to 22 Albanian. bladder was entered with a 24 Albanian laser cystoscope. There were small stone debris present indicating difficulty with bladder emptying. Using a GreenLight laser with settings of 80 w incisions were made at the 5 and 7 o'clock position. The incisions were taken down from the bladder neck down to the level of the veru. These were gradually deepened in order to define the lateral aspects of the median lobe area. Once clearly defined they will also extended in the lateral directions in order to create a deep groove. The median lobe was then ablated and enucleated tissue released into the bladder with the laser power increased to 120 W. Prostate stones were encountered at the surgical margin. When this was had been completed debris and pieces of prostate were removed from the bladder with irrigation. Both ureteric orifices were reviewed again in shown to be patent in away from any areas of energy damage. The apical area was reviewed in any stray ooze was controlled. A 22 Albanian 30 cc balloon Amin catheter was placed over a stylet into the bladder. Clear efflux was obtained upopn irrigation with a Bonny piston syringe. 30 cc was placed in the balloon and gentle traction was placed. A snap was used to hold tension on the catheter to control bleeding during patient moved and transported. A drainage bag was placed. The skin tag on the left thigh was sterilized using Betadine. The tag was removed with a 15 blade. Two 4-0 interrupted sutures were placed for control. Once transportation is complete to the PACU the snap will be removed. The patient tolerated the procedure well, he was extubated in the operating and transferred in a stable condition to the recovery area. Pathology: Prostate tissue Drains: Amin catheter
[2022-10-05 10:18] VITALS: BP 108/75; PULSE 84; RESP 14; TEMP 36.7; O2SAT 97
[2022-10-05 10:23] VITALS: BP 112/82; PULSE 84; RESP 18; O2SAT 98
[2022-10-05 10:28] VITALS: BP 116/80; PULSE 73; RESP 18; O2SAT 99
[2022-10-05 10:33] VITALS: BP 115/78; PULSE 73; RESP 18; TEMP 36.6; O2SAT 100
[2022-10-05] MEDS: Acetaminophen 325 MG TABLET 975 MG PO (10:38)
[2022-10-05] MEDS: traMADoL HCL 50 MG TABLET PO (10:38)
[2022-10-05 10:48] VITALS: BP 135/98; PULSE 72; RESP 18; TEMP 36.8; O2SAT 100
== END 2022-10-05 11:33 | disposition home or self-care (01) ==
PROVIDERS: PCP Nurse Practitioner Family; Visit Provider Urology
PROC: (CPT 52649; principal; 2022-10-05 09:10)
PROC: 0V508ZZ Destruction of Prostate, Via Natural or Artificial Opening Endoscopic (ICD-10-PCS; CPT 52648; 2022-10-05 09:10)
DX: N21.0 Calculus in bladder (principal); N32.0 Bladder-neck obstruction; D22.72 Melanocytic nevi of left lower limb, including hip
CPT/HCPCS: 52649; 11200; 88300; 88304; 88305; C1758; C1769; J1956; J3010

== ENCOUNTER → 2022-10-09 09:08 | Outpatient (BNVA) | payer BC, SELFPAY | PROVIDERS: PCP Nurse Practitioner Family; Visit Provider Urology | DX: N40.1 Benign prostatic hyperplasia with lower urinary tract symptoms (principal); N13.8 Other obstructive and reflux uropathy; N32.0 Bladder-neck obstruction | CPT/HCPCS: 51700 ==

== ENCOUNTER → 2022-11-20 15:40 | Outpatient (BNVA) | payer BC, SELFPAY | PROVIDERS: PCP Nurse Practitioner Family; Visit Provider Urology | DX: Z13.89 Encounter for screening for other disorder (principal) ==

== ENCOUNTER → 2022-11-30 13:51 | Outpatient (BNVA) | payer BC, SELFPAY | PROVIDERS: PCP Nurse Practitioner Family; Visit Provider Internal Medicine Gastroenterology | DX: Z13.89 Encounter for screening for other disorder (principal) ==

== ENCOUNTER 2023-05-28 15:28 | Outpatient (AMB) | payer BC, SELFPAY ==
--- NOTE | 2023-05-28 15:31 | A.OFFVIS_ITS ---
Intake Intake Visit Reasons: 6m/PVR Intake Note: PT HERE FOR 6MO PVR MEDS- NONE ALLERGIES - [facility] - [facility] PVR - 43 mL Allergies No Known Allergies Allergy (Verified 05/28/23 15:32) HPI HPI Comments History of Present Illness Details Willi is a pleasant male. 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 Cystoscopy - urethral annual stricture 09/28 GreenLight laser incision of prosta te Prior medications tamsulosin PSA 06/27 0.16 Renal cysts Imaging - 04/26 bilateral renal cyst up to 3.4 cm PFSH Medical History Urethral stricture GERD (gastroesophageal reflux disease) Surgical History Hx of dilation of urethra History of esophagogastroduodenoscopy (EGD) History of eye surgery Family History Father Smoker Asthma COPD (chronic obstructive pulmonary disease) Mother Heart problem HTN (hypertension) Maternal Grandmother Breast cancer Social History Household Members: Spouse and Children Housing: House Are you a primary child care team lead to a significant other at home: No Do you presently have visiting nurse or other home services: No Alcohol intake: never Patient Tobacco Use Status: Never used Tobacco e-Cigarette/Vaping Use: Never Used Second Hand Smoke Exposure: No service: No Current occupational status: employed 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 Cognitive needs: No Hearing needs: No Vision needs: Yes (glasses) Review of Systems Const Denies chills and Denies fever(s) Card Reports no additional complaints and Denies syncope Resp Denies cough GI Denies abdominal pain and Denies heartburn Reports as per HPI and Denies change in libido Neuro Denies syncope Psych Denies change in libido Endo Denies change in libido Physical Exam Const General: cooperative, healthy appearing, comfortable and no acute distress Orientation/consciousness: patient oriented x3 HEENT Face and sinus: Yes normal facial exam Mouth: moist mucous membranes Neck Neck: Yes normal visual inspection, Yes full ROM and Yes trachea midline Chest Chest palpation & inspection: normal inspection of the chest Resp Effort & Inspection: normal respiratory effort, able to speak in complete sentences and no respiratory distress GI Inspection: Yes normal to inspection Back/Spine/Pelvis Cervical Spine: normal cervical lordosis Thoracic/Lumbar Spine: thoracic and lumbar spine normal to inspection Skin General skin exam: no rashes or lesions noted Neuro General: patient oriented x3, gait normal, tone normal and moves all extremities Extrem General: Yes normal to inspection and Yes capillary refill normal Office Procedures Post Void Residual Post Residual Void Post Void Residual (PVR): 43 [id number] Void Residual by ultrasound Results AMB Urinalysis, Automated UA Leukoctes 0 Tawnya/uL Last Edit by Amrik Servin [facility] on 05/28/23 15:44 UA Nitrite Negative Last Edit by Amrik Servin [facility] on 05/28/23 15:44 UA Urobilinogen 0.2 mg/dL Last Edit by Amrik Servin [facility] on 05/28/23 15:4 4 UA Protein 15 mg/dL Last Edit by Amrik Servin [facility] on 05/28/23 15:44 UA pH 6.0 Last Edit by Amrik Servin [facility] on 05/28/23 15:44 UA Blood 0 Phillip/uL Last Edit by Amrik Servin [facility] on 05/28/23 15:44 UA Specific [place] 1.025 Last Edit by Amrik Servin [facility] on 05/28/23 15: 44 UA Ketone Negative Last Edit by Amrik Servin [facility] on 05/28/23 15:44 UA Bilirubin 0 mg/dL Last Edit by Amrik Servin [facility] on 05/28/23 15:44 UA Glucose 0 mg/dL Last Edit by Amrik Servin [facility] on 05/28/23 15:44 Assessment & Plan Assessment & Plan (1) Bladder outlet obstruction: Code(s): N32.0 - Bladder-neck obstruction Plan 12 month follow-up Orders: Orders AMB Urinalysis Automated Today Z13.9 - Encounter for screening, unspecified AMB Post Void Residual by ultrasound Today N39.8 - Other specified disorders of urinary system Patient Instructions: Imaging studies, laboratory and physical exam results were discussed and reviewed in detail. No major barriers to patient understanding were identified. An opportunity to ask questions regarding the treatment plan was provided. All questions were answered. The patient expressed understanding and agreement with the above treatment plan. The patient is aware they should contact our office by phone for worsening of their current condition or the appearance of new urologic symptoms. Compliance is encouraged with any medications and followup testing that is ordered. It is a privilege to participate in the urologic care of your patient. If you have any questions or concerns regarding treatment for the above conditions, or other urologic issues, please do not hesitate to contact me. The office telephone contact is [phone]. This note is constructed using voice recognition software. While every effort has been made to ensure accuracy auto research engineer errors may have been included. Yours sincerely, Dr Augusto Magaña MD, JAQUELINE [facility] - Urology Providers of Expert, Compassionate Care for the Genitourinary System Coding Level of Care Code Est Pt Level 3 (11058) Diagnoses Bladder outlet obstruction N32.0 CPT Codes Post Residual Void - PVR CPT Code: 18022-Pujo Void Residual by ultrasound ([id number])
== END 2023-05-28 15:56 | disposition home or self-care (01) ==
PROVIDERS: PCP Nurse Practitioner Family; Visit Provider Urology
DX: N32.0 Bladder-neck obstruction (principal); Z13.9 Encounter for screening, unspecified
CPT/HCPCS: 99213

== ENCOUNTER → 2023-05-28 15:28 | Outpatient (BNVA) | payer BC, SELFPAY | PROVIDERS: Visit Provider Urology | DX: N32.0 Bladder-neck obstruction (principal); N28.1 Cyst of kidney, acquired; N30.91 Cystitis, unspecified with hematuria | CPT/HCPCS: 51798; 81003 ==

== ENCOUNTER 2023-06-04 11:53 | Outpatient (AMB) | payer BC, SELFPAY ==
--- NOTE | 2023-06-04 11:53 | A.OFFVIS_ITS ---
Intake Intake Visit Reasons: 6 month follow up Intake Note: Willi presents as a video call. CC: sometimes he gets a cough and that is his only concern. Customer Resolution Specialist Required: No Allergies No Known Allergies Allergy (Verified 06/04/23 11:54) HPI 6 month follow up HPI Details 52 yr old m called for f/u RECAP ? Episodes of choking on food,sx going on for 4 yrs ? few times he has noted hard time swallowing solids usu steak or pork chops ? ok with soft diet, liquids ? weight is stable no Fh of cardiac problems non smoker TESTS: ? he had barium swallow 10/2019--tight cricothyroid sphincter, thoracic esophagus was normal ? EGD: 01/2020- LA grade A esophagitis. small tear noted with dilation ? Bx: GEJ with moderate chronic inflammation and reflux changes, rest of esophagus nml ?he felt that swallowing had markedly improved since EGd and taking pantoprazole INTERIM: swallowing is still normal, he still has some cough worse with eating he had a lot of second hand smoke exposure when younger he has been taking 20 mg pantoprazole daily no diarrhea or constipation, no bloody stools ? no nausea or vomiting colonoscopy on Jun 16 EXAM: GENERAL: The patient is well developed and nontoxic. ? Assessment & Plan 1/ dysphagia supected from peptic strict ure from chronic reflux and esophagitis- , few odd attacks of dry cough ? post nasal drip vs breakthru reflux vs COPD/asthma 2/ Colon screening PLAN: 1/ cont with PPI but increase to 40 mg d aily --if ongoing sx then refer pulm 2/ colonoscopy with PEG ? PFSH Medical History Urethral stricture GERD (gastroesophageal reflux disease) Surgical History Hx of dilation of urethra History of esophagogastroduodenoscopy (EGD) History of eye surgery Family History Father Smoker Asthma COPD (chronic obstructive pulmonary disease) Mother Heart problem HTN (hypertension) Maternal Grandmother Breast cancer Social History Household Members: Spouse and Children Housing: House Are you a primary emergency care tech to a significant other at home: No Do you presently have visiting nurse or other home services: No Alcohol intake: never Patient Tobacco Use Status: Never used Tobacco e-Cigarette/Vaping Use: Never Used Second Hand Smoke Exposure: No service: No Current occupational status: employed 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 Cognitive needs: No Hearing needs: No Vision needs: Yes (glasses) Assessment & Plan Assessment & Plan (1) GERD with esophagitis: Code(s): K21.00 - Gastro-esophageal reflux disease with esophagitis, without bleeding Qualifiers: Esophagitis bleeding: without hemorrhage Qualified Code(s): K21.00 - Gastro-esophageal reflux disease with esophagitis, without bleeding Medications: New pantoprazole 40 mg PO DAILY 90 tabs 1RF Refilled peg-electrolyte soln 420 gram until fecal effluent is clear; 240 mL PO Q10M 4,000 mL 0RF Discontinued pantoprazole Discontinued Reason: Doctor's Order 20 mg PO DAILY 90 tabs 2RF Telehealth Telehealth Location of provider rendering services: practice address Location of patient: address on file Patient Identification confirmed using: Name, : Yes Telehealth method: video Patient verbally consented to treatment: Yes Patient verbally consented to billing insurance company: Yes Patient informed of any privacy concerns related to visit: Yes Minutes spent on Phone/Video with Pt.: 8 Coding Level of Care Code Tele Est Pt Level 3 (98681) Diagnoses Gastroesophageal reflux disease with esophagitis without hemorrhage K21.00 Esophagitis bleeding: without hemorrhage
== END 2023-06-04 13:58 | disposition home or self-care (01) ==
LOC: HO.HGI 11:53
PROVIDERS: PCP Nurse Practitioner Family; Visit Provider Internal Medicine Gastroenterology
DX: K21.00 Gastro-esophageal reflux disease with esophagitis, without bleeding (principal)
CPT/HCPCS: 99213

== ENCOUNTER → 2023-06-04 11:53 | Outpatient (BNVA) | payer BC, SELFPAY | PROVIDERS: PCP Nurse Practitioner Family; Visit Provider Internal Medicine Gastroenterology ==

== ENCOUNTER 2023-06-16 08:04 | Day surgery (SDC) | payer BC, SELFPAY ==
[2023-06-10 14:51] VITALS: BMI 31.5
--- NOTE | 2023-06-15 10:39 | P.CONAN_ITS ---
HPI - Anesthesia Eval Consult details Narrative: 52yo M for Colonoscopy ON LICENSE OF [facility] Active Problems Active Problems: All Active Problems (Updated 06/10/23 @ 14:43 by Cyndie Daniels RN) Bladder outlet obstruction (Acute) Elevated TSH (Acute) Screening for prostate cancer (Acute) Screening for colon cancer (Acute) BPH w urinary obs/LUTS (Acute) Renal cyst (Acute) Hematuria (Acute) Microscopic hematuria (Acute) Hematuria (Acute) Painful urination (Acute) Physical exam (Acute) GERD with esophagitis (Acute) Urethral stricture (Acute) Past Medical History Medical History (Updated 06/10/23 @ 14:43 by Cyndie Daniels RN) BPH (benign prostatic hyperplasia) Urethral stricture GERD (gastroesophageal reflux disease) Family History Family History Father Smoker Asthma COPD (chronic obstructive pulmonary disease) Mother Heart problem HTN (hypertension) Maternal Grandmother Breast cancer Family history of problems with anesthesia: No Surgical History Surgical History (Updated 06/10/23 @ 14:44 by Cyndie Daniels RN) Hx of dilation of urethra History of esophagogastroduodenoscopy (EGD) History of eye surgery History of Problems with Anesthesia: No Social History Social History Household Members: Spouse and Children Housing: House Are you a primary career based intervention coordinator to a significant other at home: No Do you presently have visiting nurse or other home services: No Alcohol intake: never Patient Tobacco Use Status: Never used Tobacco e-Cigarette/Vaping Use: Never Used Second Hand Smoke Exposure: No service: No Current occupational status: employed 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
--- NOTE | 2023-06-16 09:02 | HO.ANESPROP2 ---
[facility] Active Problems Active Problems: All Active Problems (Updated 06/10/23 @ 14:43 by Cyndie Daniels RN) Bladder outlet obstruction (Acute) Elevated TSH (Acute) Screening for prostate cancer (Acute) Screening for colon cancer (Acute) BPH w urinary obs/LUTS (Acute) Renal cyst (Acute) Hematuria (Acute) Microscopic hematuria (Acute) Hematuria (Acute) Painful urination (Acute) Physical exam (Acute) GERD with esophagitis (Acute) Urethral stricture (Acute) Past Medical History Medical History BPH (benign prostatic hyperplasia) Urethral stricture GERD (gastroesophageal reflux disease) Functional capacity: independent ambulation Family History Family History Father Smoker Asthma COPD (chronic obstructive pulmonary disease) Mother Heart problem HTN (hypertension) Maternal Grandmother Breast cancer Family history of problems with anesthesia: No Surgical History Surgical History Hx of dilation of urethra History of esophagogastroduodenoscopy (EGD) History of eye surgery History of Problems with Anesthesia: No Social History Social History Household Members: Spouse and Children Housing: House Are you a primary animal care supervisor to a significant other at home: No Do you presently have visiting nurse or other home services: No Alcohol intake: never Patient Tobacco Use Status: Never used Tobacco e-Cigarette/Vaping Use: Never Used Second Hand Smoke Exposure: No Use of substances other than those prescribed or required for medical reasons: No Have you been hit, kicked, punched, or otherwise hurt by someone within the past year? 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 Cognitive needs: No Hearing needs: No Vision needs: Yes (glasses) Meds Allergies Allergy/AdvReac Type Severity Reaction Status Date / Time No Known Allergies Allergy Verified 06/04/23 11:54 Active Medications: Current Medications Lactated Ringer's (Lr) 1,000 mls @ 100 mls/hr IVCONT .Q10H MARIANELA Exam Exam Date and Time: June 16, 2023 0902 Height,Weight and Vital Signs: Height 5 ft 8 in Weight 93.894 kg Airway Mallampati Class: II TM Dist: >3cm Neck ROM: Full Heart: RRR Lungs: CTA Assessment and Plan Final Anesthetic Review Family History of Problems with Anesthesia: No History of Problems with Anesthesia: No ASA Class: II Final Preanesthetic Review: Meds/Allgs Chart Reviewed, Consent Obtained/Reviewed and Anes Risks/Benef Reviewed Patient Risk: Low Procedure Risk: Low Anesthetic Plan Anesthetic Plan: MAC: Disposition: Standard PACU
[2023-06-16 09:06] VITALS: BP 126/80; PULSE 72; RESP 16; TEMP 37.1; O2SAT 100
--- NOTE | 2023-06-16 09:20 | MHC.SHP ---
Pre-Procedural Eval Section A Date of Service: 06/16/23 Section B Chief Complaint: Encounter for screening for malignant neoplasm Relevant Family History (Specify if Yes): No Relevant Social History: None Present Medications: see Short Stay Collaborative assessment Medical History: Significant History (BPH (benign prostatic hyperplasia) Urethral stricture GERD (gastroesophageal reflux disease)) History of Previous Operations: Relevant previous surgery/procedure and date(s) (Hx of dilation of urethra History of esophagogastroduodenoscopy (EGD) History of eye surgery) Allergies: Allergies Allergy/AdvReac Type Severity Reaction Status Date / Time No Known Allergies Allergy Verified 06/04/23 11:54 Review of Systems Sugical H&P ROS: Negative: Constitution, Cardiovascular, Respiratory, Neurological, Psychiatric, Hem-Onc, Allergic/Immunologic, Gastrointestinal, Genitourinary, Musculoskeletal, Integumentary, Endocrine and Eyes/Ears/Nose/Throat Exam Surgical H&P Exam: Normal: HEENT, Normal: Heart, Normal: Lungs, Normal: Extremities, Normal: Abdomen, Normal: Skin and Normal: Neurological Plan Diagnosis/Plan: Unchanged I have reviewed the history and physical and performed a pertinent physical examination on my patient. No changes have occurred unless specified. Time Spent With Patient Time: Total time managing care of this patient today ____ minutes.
--- NOTE | 2023-06-16 10:31 | W.PM.OPN ---
Operative Note Operative Note Date of Service: 06/16/23 Narrative: Operative Information Procedure Description: Colonoscopy Indication: screening Anesthesia: MAC COLONOSCOPY Instrument: Olympus variable stiffness pediatric scope 190L Colonoscopy Monitoring: Vital signs and clinical assessment, continuous EKG monitoring, Pulse oximetry, Carbon Dioxide monitoring and blood pressure monitoring were done throughout the procedure. Colon withdrawal time was 10 minutes. Procedure: The patient was placed in the left lateral decubitis position and pre-procedure medications were administered. After a digital rectal examination of the ano-rectum, the video colonoscope was inserted into the rectum and advanced through the colon to the cecum/TI. The colonoscope was slowly withdrawn in a retrograde panoramic fashion and the colon mucosa was carefully examined including a retroflexed view of the rectum. Findings and interventions are described below. Procedure Difficulty: easy Findings: Terminal Ileum-normal Cecum:normal Ascending Colon: normal Transverse Colon -normal Descending Colon:normal Sigmoid Colon: mild diverticulosis Rectum: Retroflexion with small internal hemorrhoids, grade I Anorectum - normal Colon preparation: [place] Bowel Preparation Scale Right colon; 2 Transverse colon: 2 Left colon; 2 (0 = Unprepared colon segment with mucosa not seen due to solid stool that cannot be cleared. 1 = Portion of mucosa of the colon segment seen, but other areas of the colon segment not well seen due to staining, residual stool and/or opaque liquid. 2 = Minor amount of residual staining, small fragments of stool and/or opaque liquid, but mucosa of colon segment seen well. 3 = Entire mucosa of colon segment seen well with no residual staining, small fragments of stool or opaque liquid) Impression and Post Procedure Diagnosis: internal hemorrhoids diverticular disease Plan: High fiber diet leaflet Avoid straining at stool, epsom salts and sitz bath, anusol supps or cream Repeat Colonoscopy in 10 years or earlier if clinically indicated Above findings were reviewed with the patient and relevant handouts were provided if indicated.
[2023-06-16 10:53] VITALS: BP 101/66; PULSE 81; RESP 16; TEMP 37.4; O2SAT 96
[2023-06-16 11:08] VITALS: BP 102/68; PULSE 68; RESP 16; O2SAT 97
[2023-06-16 11:19] VITALS: BP 111/78; PULSE 91; RESP 16; TEMP 36.7; O2SAT 99
== END 2023-06-16 11:43 | disposition home or self-care (01) ==
PROVIDERS: PCP Nurse Practitioner Family; Visit Provider Internal Medicine Gastroenterology
PROC: 0DJD8ZZ Inspection of Lower Intestinal Tract, Via Natural or Artificial Opening Endoscopic (ICD-10-PCS; CPT 45378; principal; 2023-06-16 09:50)
DX: Z12.11 Encounter for screening for malignant neoplasm of colon (principal); K57.30 Diverticulosis of large intestine without perforation or abscess without bleeding; K64.0 First degree hemorrhoids; N40.0 Benign prostatic hyperplasia without lower urinary tract symptoms; K21.9 Gastro-esophageal reflux disease without esophagitis; Z79.899 Other long term (current) drug therapy
CPT/HCPCS: 45378

== ENCOUNTER → 2023-06-16 08:04 | Outpatient (BNV) | payer BC, SELFPAY | PROVIDERS: PCP Nurse Practitioner Family; Visit Provider Internal Medicine Gastroenterology | DX: Z12.11 Encounter for screening for malignant neoplasm of colon (principal); K57.30 Diverticulosis of large intestine without perforation or abscess without bleeding; K64.0 First degree hemorrhoids | CPT/HCPCS: 45378 ==

== ENCOUNTER 2023-10-25 08:22 | Outpatient (AMB) | payer BC, SELFPAY ==
--- NOTE | 2023-10-25 08:25 | MHC.PC.OV ---
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 Will order labs. Colon screen is up to date. Due for PSA, will order. Denies dribbling with urination, weak stream, and frequent nocturia. PFSH Medical History BPH (benign prostatic hyperplasia) Urethral stricture GERD (gastroesophageal reflux disease) Surgical History Hx of colonoscopy Hx of dilation of urethra History of esophagogastroduodenoscopy (EGD) History of eye surgery Family History Father Smoker Asthma COPD (chronic obstructive pulmonary disease) Mother Heart problem HTN (hypertension) Maternal Grandmother Breast cancer Social History Household Members: Spouse and Children Housing: House Are you a primary student career development specialist to a significant other at home: No Do you presently have visiting nurse or other home services: No Alcohol intake: never Comment: medicated with po tylenol and tramadol Patient Tobacco Use Status: Never used Tobacco e-Cigarette/Vaping Use: Never Used Second Hand Smoke Exposure: No service: No Current occupational status: employed 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 1. Little interest or pleasure in doing things: not at all 2. Feeling down, depressed, or hopeless: not at all 3. Trouble falling or staying asleep, or sleeping too much: not at all 4. Feeling tired or having little energy: not at all 5. Poor appetite or overeating: not at all 6. Feeling bad about yourself - or that you are a failure or have let yourself or your family down: not at all 7. Trouble concentrating on things, such as reading the newspaper or watching television: not at all 8. Moving or speaking so slowly that other people could have noticed. Or the opposite - being so fidgety or restless that you have been moving around a lot more than usual: not at all 9. Thoughts that you would be better off or of hurting yourself in some way: not at all Total score: 0 Depression Screening Interpretation: Negative Depression Screening Done: Yes 28953 - PHQ-9 Billing: Yes Source: Developed by Drs. Buck Powell, Mely Cano, Jim Almanza and colleagues, with an educational gonzalo from [employer]. Thrive Questionnaire Date Thrive assessed: 10/25/23 I am a: Patient What is your living situation today?: I have a steady place to live Within the past 12 months, did the food you bought not last and you didn't have the money to get more?: Never true Within the past 12 months, did you worry whether your food would run out before you got money to buy more?: Never true Do you have trouble paying for medicines?: No Do you have trouble getting transportation to medical appointments?: No Do you have trouble paying your heating and electricity bill?: No Do you have trouble taking care of your child, family member or friend?: No Do you have trouble with day-to-day activities such as bathing, preparing meals, shopping, managing finances, etc.?: No Are you currently unemployed and looking for a job?: No Are you interested in more education?: No Please select the resources that you would like help with: None Currently or been in a relationship where the following occur: no concerns reported THRIVE Score: 0 AUDIT C Alcohol Use Questionnaire (AUDIT-C) 1. How often do you have a drink containing alcohol?: Monthly or less 2. How many drinks containing alcohol do you have on a typical day when you are drinking?: 3 or 4 3. How often do you have six or more drinks on one occasion?: Never Total Score: 2 Score Reviewed/Action Taken: Yes MARLEE-7 AMB Questionnaire MARLEE-7 Date MARLEE - 7 assessed: 10/25/23 Feeling nervous, anxious, or on edge: 0 = Not at all Not being able to stop or control worryin = Not at all Worrying too much about different things: 0 = Not at all Trouble relaxin = Not at all Being so restless that it is hard to sit still: 0 = Not at all Becoming easily annoyed or irritable: 0 = Not at all Feeling afraid as if something awful might happen: 0 = Not at all Total MARLEE-7 score (0-4 normal; 5-9 mild; 10-14 moderate; 15-21 severe): 0 Source: Developed by Drs. Buck Powell, Mely Cano, Jim Almanza and colleagues, with an educational gonzalo from [employer]. MARLEE-7 Assessment Billing MARLEE-7 Assessment Tool: MARLEE-7 Assessment 00092 Physical exam (Primary Care) Vital Signs: Last Vital Signs Pulse 69 10/25/23 08:28 BP 110/70 10/25/23 08:28 Pulse Ox 99 10/25/23 08:28 Oxygen Delivery Method Room Air 10/25/23 08:28 BMI result Body Mass Index 33.8 Tobacco/Smoking Status: Tobacco use Status Tobacco use date assessed 10/25/23 10/25/23 08:33 Patient Tobacco Use Status Never used Tobacco 10/25/23 08:25 e-Cigarette/Vaping Use Never Used 10/25/23 08:25 PHQ-9: PHQ-9 Score PHQ-9: Total score 0 10/25/23 08:43 Depression Screening Interpretation: Negative Thrive Assessment: Date of Thrive Assessment Date Thrive assessed 10/25/23 10/25/23 08:33 Currently or been in a relationship where the following occur: no concerns reported GI Other: small umbilical hernia Assessment and Plan Assessment & Plan (1) Physical exam: Code(s): Z00.00 - Encounter for general adult medical examination without abnormal findings Plan: Labs ordered (2) Screening for prostate cancer: Code(s): Z12.5 - Encounter for screening for malignant neoplasm of prostate Plan: PSA ordered Plan The patient agreed to the use of a medical dir for this encounter. Scribed for BRENNAN Lawson by Ignacia Duncan medical dir, on 10/25/2023 at 08:45 EST. Orders: Orders Complete Blood Count Auto Diff Today Z00.00 - Encounter for general adult medical examination without abnormal findings TSH reflex Free T4 Today Z00.00 - Encounter for general adult medical examination without abnormal findings UA CC w/rflx Micro + Cult Today Z00.00 - Encounter for general adult medical examination without abnormal findings Lipid Panel Today Z00.00 - Encounter for general adult medical examination without abnormal findings Comprehensive [place]. Panel Fast Today Z00.00 - Encounter for general adult medical examination without abnormal findings Prostate Specific Antigen Scr Today Z12.5 - Encounter for screening for malignant neoplasm of prostate Coding Level of Care Code Est Pt Prev Care 40-64y(29320) Diagnoses Physical exam Z00.00 Screening for prostate cancer Z12.5 Additional Codes MARLEE-7 Assessment Billing - MARLEE-7 Assessment Tool: MARLEE-7 Assessment [id number] ([id number])
[2023-10-25 08:28] VITALS: BP 110/70; PULSE 69; O2SAT 99; BMI 33.8
== END 2023-10-25 09:00 | disposition home or self-care (01) ==
PROVIDERS: PCP Nurse Practitioner Family; Visit Provider Nurse Practitioner Family
DX: Z00.00 Encounter for general adult medical examination without abnormal findings (principal); Z12.5 Encounter for screening for malignant neoplasm of prostate
CPT/HCPCS: 99396

== ENCOUNTER 2023-10-25 09:02 | Outpatient (REF) | payer BC, SELFPAY ==
[2023-10-25 10:57] LABS: MANUAL DIFF FLAG NO
[2023-10-25 11:06] LABS: Appearance Urine Clear; Color Urine Yellow; Glucose Urine UA Negative (Negative); Leukocyte Esterase Urine Negative (Negative); Nitrite Urine Negative (Negative); Urine Blood Negative (Negative); Urine Ketones Negative (Negative); Urine Protein Negative (Neg-Trace)
[2023-10-25 11:08] LABS: Basophils Absolute Auto 0.1 X10*3/uL (0.0-0.2); Eosinophils Absolute Auto 0.2 X10*3/uL (0.0-0.4); Hematocrit 44.1 % (42.0-52.0); Hemoglobin 14.5 g/dl (14.0-18.0); Imm Gran Abs Auto 0.02 X10*3/uL (0.00-0.03); Imm Gran Pct Auto 0.4 % (0.0-0.4); Lymphocytes Absolute Auto 1.2 X10*3/uL (1.2-4.9); Lymphocytes Percent Auto 23.9 % (20-40); Mean Corpuscular HGB Conc 32.9 g/dl (31.0-36.0); Mean Corpuscular Hemoglobin 29.3 pg (27.0-33.0); Mean Corpuscular Volume 89.1 fL (80.0-98.0); Mean Platelet Volume 10.3 fL (9.4-12.4); Monocytes Absolute Auto 0.4 X10*3/uL (0.1-1.2); Monocytes Percent Auto 7.3 % (2-11); Neutrophils Absolute Auto 3.3 x10*3/uL (2.0-8.3); Neutrophils Percent Auto 64.4 % (45-73); Platelet Count 194 X10*3/uL (160-400); Red Blood Count 4.95 X10*6/uL (4.60-5.80); Red Cell Distribution Width 12.8 % (11.0-16.0); White Blood Count 5.1 X10*3/uL (4.8-10.8)
[2023-10-25 11:44] LABS: Alanine Aminotransferase 25 U/L (0-40); Albumin Level 4.2 g/dL (3.5-5.0); Alkaline Phosphatase 74 U/L (39-117); Anion Gap 10 (12-20); Aspartate Amino Transferase 19 U/L (5-37); Bilirubin Total 0.7 mg/dL (0.0-1.0); Blood Urea Nitrogen 13 mg/dL (9-16); Calcium 9.3 mg/dL (8.4-10.2); Carbon Dioxide 27 mmol/L (22-29); Chloride 105 mmol/L (96-108); Cholesterol 208 mg/dL (<200); Estimated Glomerular Filt Rate > 60; Glucose Fasting 88 mg/dL (60-99); HDL Cholesterol 72 mg/dL (>40); LDL Cholesterol Calculated 129 mg/dL (<100); Potassium 4.1 mmol/L (3.3-5.1); Sodium 138 mmol/L (135-145); Total Protein 7.1 g/dL (6.5-8.0); Triglycerides 37 mg/dL (<150)
[2023-10-25 11:48] LABS: TSH reflex Free T4 3.48 uIU/mL (0.32-4.0)
[2023-10-25 12:06] LABS: Prostate Specific Antigen Scr 0.28 ng/mL (<0.05-4.0)
== END 2023-10-25 09:03 | disposition home or self-care (01) ==
LOC: HO.HMGCLDS 09:02
PROVIDERS: PCP Nurse Practitioner Family; Visit Provider Nurse Practitioner Family
DX: Z00.00 Encounter for general adult medical examination without abnormal findings (principal); Z12.5 Encounter for screening for malignant neoplasm of prostate
CPT/HCPCS: 36415; 80053; 80061; 81003; 84153; 84443; 85025

== ENCOUNTER 2023-12-03 12:13 | Outpatient (AMB) | payer BC, SELFPAY ==
[2023-12-03 12:16] VITALS: BP 116/80; PULSE 72; BMI 33.5
--- NOTE | 2023-12-03 12:16 | A.OFFVIS_ITS ---
Intake Vital Signs 12/03/23 12:16 Height 5 ft 8 in Weight 220 lb 7.396 oz BMI 33.5 BP 116/80 Blood Pressure Location Rt brachial Position Sitting Pulse 72 Intake Visit Reasons: 6 month follow up Intake Note: Willi presents today in 6 months follow up of cough . CC: Patient c/o having to cough constantly to clear up his throat. Non productive cough per PT. He also reports burping more than usual. Barrel Lapper Required: No Accompanied by: Self / Same As Patient Allergies No Known Allergies Allergy (Verified 12/03/23 12:20) HPI 6 month follow up HPI Details 53 yr old m called for f/u RECAP Episodes of choking on food,sx going on for 4 yrs few times he has noted hard time swallowing solids usu steak or pork chops ok with soft diet, liquids weight is stable no Fh of cardiac problems non smoker TESTS: he had barium swallow 10/2019--tight cricothyroid sphincter, thoracic esophagus was normal EGD: 01/2020- [place] grade A esophagitis. small tear noted with dilation Bx: GEJ with moderate chronic inflammation and reflux changes, rest of esophagus nml he felt that swallowing had markedly improved since EGd and taking pantoprazole colonoscopy 2022--diverticulosis, internal hemorrhoids INTERIM: he has a lot of coughing, clearing of throat can be with eating or even when not eating no trouble with swallowing denies gerd sx, burping maybe more than usual no diarrhea or constipation, no bloody stools no nausea or vomiting he has been taking 40 mg pantoprazole daily --was increased from 20 mg EXAM: GENERAL: The patient is well developed and nontoxic. VITAL SIGNS:see workflow HEENT: Nonicteric sclerae, PERRLA, EOMI. Oropharynx clear. Moist mucous membranes. Conjunctivae appear well perfused. No thyroid mass. CHEST: Chest wall is nontender. HEART: Regular rate and rhythm without murmurs. LUNGS: Clear to auscultation bilaterally. ABDOMEN: Soft, positive bowel sounds, nontender, no organomegaly.no flank tenderness SKIN: No rash, no excessive bruising, petechiae, or purpura. NEUROLOGIC: Cranial nerves II-XII intact without motor/sensory deficit. Psych: normal affect Assessment & Plan 1/ dysphagia supected from peptic strict ure from chronic reflux and esophagitis--this is better but he still has few attacks of dry cough and clearing of throat ? post nasal drip vs breakthru reflux vs COPD/asthma PLAN: 1/ cont with PPI but increase to 40 mg B ID 2/ add claritin 10 mg daily, 3/ CXR 4/ offered rept egd with dil and moore-- he will think about it 5/ maybe rast for dust allergens PFSH Medical History BPH (benign prostatic hyperplasia) Urethral stricture GERD (gastroesophageal reflux disease) Surgical History Hx of colonoscopy Hx of dilation of urethra History of esophagogastroduodenoscopy (EGD) History of eye surgery Family History Father Smoker Asthma COPD (chronic obstructive pulmonary disease) Mother Heart problem HTN (hypertension) Maternal Grandmother Breast cancer Social History Household Members: Spouse and Children Housing: House Are you a primary transitional care liaison to a significant other at home: No Do you presently have visiting nurse or other home services: No Alcohol intake: never Comment: medicated with po tylenol and tramadol Patient Tobacco Use Status: Never used Tobacco e-Cigarette/Vaping Use: Never Used Second Hand Smoke Exposure: No service: No Current occupational status: employed 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 post nasal drip vs breakthru reflux vs COPD/asthma PLAN: 1/ cont with PPI but increase to 40 mg BID 2/ add claritin 10 mg daily, 3/ CXR 4/ offered rept egd with dil and moore--he will think about it 5/ maybe rast for dust allergens Orders: Orders XR chest 2V Today R05.3 - Chronic cough Coding Level of Care Code Est Pt Level 4 (97591) Diagnoses Chronic cough R05.3
== END 2023-12-03 12:36 | disposition home or self-care (01) ==
PROVIDERS: PCP Nurse Practitioner Family; Visit Provider Internal Medicine Gastroenterology
DX: R05.3 Chronic cough (principal)
CPT/HCPCS: 99214

== ENCOUNTER 2023-12-03 12:13 | Outpatient (REF) | payer BC, SELFPAY ==
--- NOTE | ~2023-12-03 | XR_ITS ---
EXAMINATION: XR CHEST CLINICAL INFORMATION: Chronic cough COMPARISON: None available. TECHNIQUE: 2 views of the chest were obtained. FINDINGS: No significant abnormality is noted involving the heart, lungs, mediastinum, bony thorax or soft tissues. XR/XR chest 2V IMPRESSION: Unremarkable examination.
== END 2023-12-03 12:14 | disposition home or self-care (01) ==
LOC: HO.XRAY 12:13
PROVIDERS: PCP Nurse Practitioner Family; Visit Provider Internal Medicine Gastroenterology
DX: R05.3 Chronic cough (principal)
CPT/HCPCS: 71046

== ENCOUNTER 2024-03-31 12:02 | Outpatient (AMB) | payer BC, SELFPAY ==
--- NOTE | 2024-03-31 12:10 | MHC.OFFVIS ---
Vital Signs 03/31/24 12:12 Height 5 ft 8 in Weight 212 lb BMI 32.2 BP 102/59 L Blood Pressure Location Lt brachial Position Sitting Pulse 80 Intake Visit Reasons: 4 month follow up Intake Note: Patient 4 month follow up for Chronic cough and XRay results. Patient cc: abdominal bloating, some diarrhea on and off, still coughting but not to bad and poor appetite. Denies any GI issues. Cotton Opener Required: No Accompanied by: Self / Same As Patient Allergies No Known Allergies Allergy (Verified 03/31/24 12:10) HPI HPI 4 month follow up: Details: 53 yr old m seen for f/u RECAP Episodes of choking on food,sx going on for 4 yrs few times he has noted hard time swallowing solids usu steak or pork chops ok with soft diet, liquids weight is stable no Fh of cardiac problems non smoker TESTS: he had barium swallow 10/2019--tight cricothyroid sphincter, thoracic esophagus was normal EGD: 01/2020- [place] grade A esophagitis. small tear noted with dilation Bx: GEJ with moderate chronic inflammation and reflux changes, rest of esophagus nml he felt that swallowing had markedly improved since EGd and taking pantoprazole colonoscopy 2022--diverticulosis, internal hemorrhoids INTERIM: coughing has been much better he has been taking pantoprazole once daily not been taking claritin weather might be helping no dysphagia v occ diarrhea, no constipation, no bloody stools no nausea or vomiting EXAM: GENERAL: The patient is well developed and nontoxic. VITAL SIGNS:see workflow HEENT: Nonicteric sclerae, PERRLA, EOMI. Oropharynx clear. Moist mucous membranes. Conjunctivae appear well perfused. No thyroid mass. CHEST: Chest wall is nontender. HEART: Regular rate and rhythm without murmurs. LUNGS: Clear to auscultation bilaterally. ABDOMEN: Soft, positive bowel sounds, nontender, no organomegaly.no flank tenderness SKIN: No rash, no excessive bruising, petechiae, or purpura. NEUROLOGIC: Cranial nerves II-XII intact without motor/sensory deficit. Psych: normal affect Assessment & Plan 1/ dysphagia supected from peptic stricture from chronic reflux and esophagitis--not an issue at this time PLAN: 1/ cont with PPI 40 mg and take MV daily 2/ add claritin 10 mg daily, in winter if needed 3/ fludi intake at least 2-3 L/day PFSH Medical History BPH (benign prostatic hyperplasia) Urethral stricture GERD (gastroesophageal reflux disease) Surgical History Hx of colonoscopy Hx of dilation of urethra History of esophagogastroduodenoscopy (EGD) History of eye surgery Family History Father Smoker Asthma COPD (chronic obstructive pulmonary disease) Mother Heart problem HTN (hypertension) Maternal Grandmother Breast cancer Social History Household Members: Spouse and Children Housing: House Are you a primary memory care program director to a significant other at home: No Do you presently have visiting nurse or other home services: No Alcohol intake: never Comment: medicated with po tylenol and tramadol Patient Tobacco Use Status: Never used Tobacco e-Cigarette/Vaping Use: Never Used Second Hand Smoke Exposure: No service: No Current occupational status: employed Current occupation: [employer] Cognitive needs: No Hearing needs: No Vision needs: Yes (glasses) Physical Exam Vital Signs: Last Vital Signs Pulse 80 03/31/24 12:12 BP 102/59 L 03/31/24 12:12 BMI result Body Mass Index 32.2 Assessment & Plan Assessment & Plan (1) GERD with esophagitis: Code(s): K21.00 - Gastro-esophageal reflux disease with esophagitis, without bleeding Category: Medical Qualifiers: Esophagitis bleeding: without hemorrhage Qualified Code(s): K21.00 - Gastro-esophageal reflux disease with esophagitis, without bleeding Plan: see above Coding Level of Care Code Est Pt Level 3 (03392) Diagnoses Gastroesophageal reflux disease with esophagitis without hemorrhage K21.00 Esophagitis bleeding: without hemorrhage
[2024-03-31 12:12] VITALS: BP 102/59; PULSE 80; BMI 32.2
== END 2024-03-31 13:02 | disposition home or self-care (01) ==
PROVIDERS: PCP Nurse Practitioner Family; Visit Provider Internal Medicine Gastroenterology
DX: K21.00 Gastro-esophageal reflux disease with esophagitis, without bleeding (principal)
CPT/HCPCS: 99213

== ENCOUNTER → 2024-03-31 12:02 | Outpatient (BNVA) | payer BC, SELFPAY | PROVIDERS: PCP Nurse Practitioner Family; Visit Provider Internal Medicine Gastroenterology ==

== ENCOUNTER 2024-05-30 15:39 | Outpatient (REF) | payer BC, SELFPAY ==
[2024-05-30 17:23] LABS: Urine Cytology See Pathology rpt
== END 2024-05-30 15:40 | disposition home or self-care (01) ==
LOC: HO.LNP 15:39
PROVIDERS: PCP Nurse Practitioner Family; Visit Provider Urology
DX: R31.29 Other microscopic hematuria (principal)
CPT/HCPCS: 88112

== ENCOUNTER 2024-05-30 15:39 | Outpatient (AMB) | payer BC, SELFPAY ==
--- NOTE | 2024-05-30 15:55 | A.OFFVIS_ITS ---
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 Cystoscopy - urethral annual stricture 09/28 GreenLight laser incision of prostate at area of stricture Prior medications tamsulosin PSA 06/27 0.16, 10/30 0.3 Renal cysts Imaging - 04/26 bilateral renal cyst up to 3.4 cm PFSH Medical History BPH (benign prostatic hyperplasia) Urethral stricture GERD (gastroesophageal reflux disease) Surgical History Hx of colonoscopy Hx of dilation of urethra History of esophagogastroduodenoscopy (EGD) History of eye surgery Family History Father Smoker Asthma COPD (chronic obstructive pulmonary disease) Mother Heart problem HTN (hypertension) Maternal Grandmother Breast cancer Social History Household Members: Spouse and Children Housing: House Are you a primary veterinarian laboratory animal care to a significant other at home: No Do you presently have visiting nurse or other home services: No Alcohol intake: never Comment: medicated with po tylenol and tramadol Patient Tobacco Use Status: Never used Tobacco e-Cigarette/Vaping Use: Never Used Second Hand Smoke Exposure: No service: No Current occupational status: employed 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 Cognitive needs: No Hearing needs: No Vision needs: Yes (glasses) Review of Systems Const Denies chills and Denies fever(s) Card Reports no additional complaints and Denies syncope Resp Denies cough GI Denies abdominal pain and Denies heartburn Reports as per HPI and Denies change in libido Neuro Denies syncope Psych Denies change in libido Endo Denies change in libido Physical Exam Const General: cooperative, healthy appearing, comfortable and no acute distress Orientation/consciousness: patient oriented x3 HEENT Face and sinus: Yes normal facial exam Mouth: moist mucous membranes Neck Neck: Yes normal visual inspection, Yes full ROM and Yes trachea midline Chest Chest palpation & inspection: normal inspection of the chest Resp Effort & Inspection: normal respiratory effort, able to speak in complete sentences and no respiratory distress GI Inspection: Yes normal to inspection Back/Spine/Pelvis Cervical Spine: normal cervical lordosis Thoracic/Lumbar Spine: thoracic and lumbar spine normal to inspection Skin General skin exam: no rashes or lesions noted Neuro General: patient oriented x3, gait normal, tone normal and moves all extremities Extrem General: Yes normal to inspection and Yes capillary refill normal Assessment & Plan Assessment & Plan (1) Painful urination: Code(s): R30.9 - Painful micturition, unspecified Category: Medical (2) Urethral stricture: Code(s): N35.919 - Unspecified urethral stricture, male, unspecified site Category: Medical Plan Continue 12 month follow-up Orders: Orders AMB Post Void Residual by ultrasound 05/30/24 N32.0 - Bladder-neck obstruction AMB Urinalysis Automated 05/30/24 Z13.9 - Encounter for screening, unspecified Urine Cytology 05/30/24 R31.29 - Other microscopic hematuria Patient Instructions: Imaging studies, laboratory and physical exam results were discussed and reviewed in detail. No major barriers to patient understanding were identified. An opportunity to ask questions regarding the treatment plan was provided. All questions were answered. The patient expressed understanding and agreement with the above treatment plan. The patient is aware they should contact our office by phone for worsening of their current condition or the appearance of new urologic symptoms. Compliance is encouraged with any medications and followup testing that is ordered. It is a privilege to participate in the urologic care of your patient. If you have any questions or concerns regarding treatment for the above conditions, or other urologic issues, please do not hesitate to contact me. The office telephone contact is [phone]. This note is constructed using voice recognition software. While every effort has been made to ensure accuracy fashion illustrator errors may have been included. Yours sincerely, Dr Augusto Magaña MD, [facility] - Urology Providers of Expert, Compassionate Care for the Genitourinary System Coding Level of Care Code Est Pt Level 4 (34345) Diagnoses Painful urination R30.9 Urethral stricture N35.919
== END 2024-05-30 16:12 | disposition home or self-care (01) ==
PROVIDERS: PCP Nurse Practitioner Family; Visit Provider Urology
DX: R30.9 Painful micturition, unspecified (principal); N35.919 Unspecified urethral stricture, male, unspecified site
CPT/HCPCS: 99214

== ENCOUNTER 2025-03-19 15:25 | Outpatient (AMB) | payer BC, SELFPAY ==
--- NOTE | 2025-03-19 15:27 | MHC.OFFVIS ---
Intake Visit Reasons: Telehealth Continue Pantropazole Intake Note: Patient telehealth follow up for continue Pantropazole. Patient denies any GI issues for today. 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 small tear noted with dilation Bx: GEJ with moderate chronic inflammation and reflux changes, rest of esophagus nml he felt that swallowing had markedly improved since EGD and taking pantoprazole colonoscopy 2022--diverticulosis, internal hemorrhoids INTERIM: he had a choking attack and needed hemilich otherwise doing good he has been taking pantoprazole denies worsening heartburn he has occaisonal cough no nausea or vomiting rarely takes nsaid Assessment & Plan 1/ dysphagia supected from peptic stricture from chronic reflux and esophagitis--may be recurrence PLAN: 1/ cont with PPI 40 mg and take MV daily 2/ repeat EGD for re assessment and dilation PFSH Medical History BPH (benign prostatic hyperplasia) Urethral stricture GERD (gastroesophageal reflux disease) Surgical History Hx of colonoscopy Hx of dilation of urethra History of esophagogastroduodenoscopy (EGD) History of eye surgery Family History Father Smoker Asthma COPD (chronic obstructive pulmonary disease) Mother Heart problem HTN (hypertension) Maternal Grandmother Breast cancer Social History Household Members: Spouse and Children Housing: House Are you a primary wild animal caretaker to a significant other at home: No Do you presently have visiting nurse or other home services: No Alcohol intake: never Comment: medicated with po tylenol and tramadol Patient Tobacco Use Status: Never used Tobacco e-Cigarette/Vaping Use: Never Used Second Hand Smoke Exposure: No service: No Current occupational status: employed 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 Cognitive needs: No Hearing needs: No Vision needs: Yes (glasses) Telehealth Telehealth Telehealth Platform: Telephone Location of provider rendering services: practice address Location of patient: address on file Patient Identification confirmed using: Name, : Yes Telehealth method: voice only Patient verbally consented to treatment: Yes Patient verbally consented to billing insurance company: Yes Patient informed of any privacy concerns related to visit: Yes Minutes spent on Phone/Video with Pt.: 6 Assessment & Plan Assessment & Plan (1) GERD with esophagitis: Code(s): K21.00 - Gastro-esophageal reflux disease with esophagitis, without bleeding Category: Medical Qualifiers: Esophagitis bleeding: without hemorrhage Qualified Code(s): K21.00 - Gastro-esophageal reflux disease with esophagitis, without bleeding Plan: as above Coding Level of Care Code Tele Est Pt Level 3 (87573) Diagnoses Gastroesophageal reflux disease with esophagitis without hemorrhage K21.00 Esophagitis bleeding: without hemorrhage
== END 2025-03-19 16:16 | disposition home or self-care (01) ==
LOC: HO.HGI 15:25
PROVIDERS: PCP Nurse Practitioner Family; Visit Provider Internal Medicine Gastroenterology
DX: K21.00 Gastro-esophageal reflux disease with esophagitis, without bleeding (principal)
CPT/HCPCS: 99213

== ENCOUNTER 2025-04-11 12:43 | Outpatient (AMB) | payer BC, SELFPAY ==
[2025-04-11 12:49] VITALS: BP 120/78; PULSE 77; RESP 16; TEMP 36.8; O2SAT 99; BMI 32.2
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
== END 2025-04-11 13:24 | disposition home or self-care (01) ==
LOC: HO.HMCC 12:44
PROVIDERS: PCP Nurse Practitioner Family; Visit Provider Nurse Practitioner Family
DX: Z00.00 Encounter for general adult medical examination without abnormal findings (principal); R10.32 Left lower quadrant pain

== ENCOUNTER → 2025-04-11 12:43 | Outpatient (BNVA) | payer BC, SELFPAY | PROVIDERS: PCP Nurse Practitioner Family; Visit Provider Nurse Practitioner Family | DX: Z00.00 Encounter for general adult medical examination without abnormal findings (principal); K21.9 Gastro-esophageal reflux disease without esophagitis; R10.32 Left lower quadrant pain | CPT/HCPCS: 96127 ==

== ENCOUNTER 2025-04-12 11:00 | Outpatient (REF) | payer BC, SELFPAY ==
[2025-04-12 13:10] LABS: Appearance Urine Clear; Glucose Urine UA Negative (Negative); PH 7.0 (5.0-9.0); Specific Gravity - Urine 1.020 (1.005-1.025); UMIC TRIGGER UACC YES
[2025-04-12 13:20] LABS: MANUAL DIFF FLAG NO
[2025-04-12 13:32] LABS: Hematocrit 41.7 % (42.0-52.0); Hemoglobin 13.5 g/dl (14.0-18.0); Imm Gran Abs Auto 0.01 X10*3/uL (0.00-0.03); Imm Gran Pct Auto 0.2 % (0.0-0.4); Lymphocytes Absolute Auto 1.4 X10*3/uL (1.2-4.9); Mean Corpuscular HGB Conc 32.4 g/dl (31.0-36.0); Mean Corpuscular Hemoglobin 28.4 pg (27.0-33.0); Mean Corpuscular Volume 87.6 fL (80.0-98.0); NRBC Abs Auto 0.000 X10*3/uL (0.0-0.012); NRBC Pct Auto 0.0 /100WBC (0.0-0.2); Platelet Count 202 X10*3/uL (160-400); Red Blood Count 4.76 X10*6/uL (4.60-5.80); White Blood Count 5.2 X10*3/uL (4.8-10.8)
[2025-04-12 14:03] LABS: Alanine Aminotransferase 39 U/L (0-40); Albumin Level 4.1 g/dL (3.5-5.0); Alkaline Phosphatase 82 U/L (39-117); Anion Gap 11 (12-20); Aspartate Amino Transferase 24 U/L (5-37); Blood Urea Nitrogen 11 mg/dL (9-16); Calcium 8.7 mg/dL (8.4-10.2); Carbon Dioxide 26 mmol/L (22-29); Chloride 108 mmol/L (96-108); Cholesterol 199 mg/dL (<200); Estimated Glomerular Filt Rate > 60; HDL Cholesterol 64 mg/dL (>40); Potassium 3.9 mmol/L (3.3-5.1); Sodium 141 mmol/L (135-145); Total Protein 6.6 g/dL (6.5-8.0); Triglycerides 44 mg/dL (<150)
== END 2025-04-12 11:01 | disposition home or self-care (01) ==
LOC: HO.HMGCLDS 11:00
PROVIDERS: PCP Nurse Practitioner Family; Visit Provider Nurse Practitioner Family
DX: Z00.00 Encounter for general adult medical examination without abnormal findings (principal); Z12.5 Encounter for screening for malignant neoplasm of prostate; Z13.6 Encounter for screening for cardiovascular disorders
CPT/HCPCS: 36415; 80053; 80061; 81001; 81003; 84153; 84443; 85025

== ENCOUNTER 2025-05-16 08:51 | Day surgery (SDC) | payer BC, SELFPAY ==
[2025-05-14 13:46] VITALS: BMI 32.2
--- NOTE | 2025-05-15 09:11 | HO.ANESPROP2 ---
Documented by User: Aysha Addison NP 05/15/25 09:11 HPI - Anesthesia Eval Consult details Narrative: 54yo M for Upper Endoscopy with Balloon Dilitation PMFSH Active Problems Active Problems: All Active Problems Anemia (Acute) Left inguinal pain (Acute) Chronic cough (Acute) Bladder outlet obstruction (Acute) Elevated TSH (Acute) Screening for prostate cancer (Acute) Screening for colon cancer (Acute) BPH w urinary obs/LUTS (Acute) Renal cyst (Acute) Hematuria (Acute) Microscopic hematuria (Acute) Hematuria (Acute) Painful urination (Acute) Physical exam (Acute) GERD with esophagitis (Acute) Urethral stricture (Acute) Past Medical History Medical History BPH (benign prostatic hyperplasia) Urethral stricture GERD (gastroesophageal reflux disease) Family History Family History Father Smoker Asthma COPD (chronic obstructive pulmonary disease) Mother Heart problem HTN (hypertension) Maternal Grandmother Breast cancer Family history of problems with anesthesia: No Surgical History Surgical History Hx of colonoscopy Hx of dilation of urethra History of esophagogastroduodenoscopy (EGD) History of eye surgery History of Problems with Anesthesia: No Social History Social History Household Members: Spouse and Children Housing: House Are you a primary hospice care transitions coordinator to a significant other at home: No Do you presently have visiting nurse or other home services: No Alcohol intake: never Comment: medicated with po tylenol and tramadol Patient Tobacco Use Status: Never used Tobacco e-Cigarette/Vaping Use: Never Used Second Hand Smoke Exposure: No Use of substances other than those prescribed or required for medical reasons: No Advance Directives: No Advance Directives Information Provided: Yes service: No Current occupational status: employed 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 Cognitive needs: No Hearing needs: No Vision needs: Yes (glasses) Meds Allergies Allergy/AdvReac Type Severity Reaction Status Date / Time No Known Allergies Allergy Verified 04/11/25 13:02 Home Medications ?Medication ?Instructions ?Recorded ?Confirmed ?Last Taken ?Type multivitamin-ferrous 1 tab PO DAILY 05/30/24 05/14/25 Unknown History fumarate-folic acid 18 mg-400 mcg tablet (Centrum Complete) Exam Height,Weight and Vital Signs: Height 5 ft 8 in Weight 96.162 kg Assessment and Plan Assessment Anesthesia Assessment: Chart Reviewed Final Anesthetic Review Family History of Problems with Anesthesia: No History of Problems with Anesthesia: No Documented by User: Thomas Alberto MD 05/16/25 11:38 PMFSH Past Medical History Medical History BPH (benign prostatic hyperplasia) Urethral stricture GERD (gastroesophageal reflux disease) Family History Family History Father Smoker Asthma COPD (chronic obstructive pulmonary disease) Mother Heart problem HTN (hypertension) Maternal Grandmother Breast cancer Surgical History Surgical History Hx of colonoscopy Hx of dilation of urethra History of esophagogastroduodenoscopy (EGD) History of eye surgery Social History Social History Household Members: Spouse and Children Housing: House Are you a primary hospice care transitions coordinator to a significant other at home: No Do you presently have visiting nurse or other home services: No Alcohol intake: never Comment: medicated with po tylenol and tramadol Patient Tobacco Use Status: Never used Tobacco e-Cigarette/Vaping Use: Never Used Second Hand Smoke Exposure: No Use of substances other than those prescribed or required for medical reasons: No Advance Directives: No Advance Directives Information Provided: Yes service: No Current occupational status: employed 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 Cognitive needs: No Hearing needs: No Vision needs: Yes (glasses) Meds Allergies Allergy/AdvReac Type Severity Reaction Status Date / Time No Known Allergies Allergy Verified 04/11/25 13:02 Home Medications ?Medication ?Instructions ?Recorded ?Confirmed ?Last Taken ?Type multivitamin-ferrous 1 tab PO DAILY 05/30/24 05/14/25 Unknown History fumarate-folic acid 18 mg-400 mcg tablet (Centrum Complete) Exam Exam Date and Time: 05/16/25 Airway TM Dist: >3cm Loose/Missing/Broken Teeth: No Heart: rrr Lungs: cta Other: normal Assessment and Plan Final Anesthetic Review NPO: Yes ASA Class: II Final Preanesthetic Review: No Changes in Pt Med Stat, Meds/Allgs Chart Reviewed, Consent Obtained/Reviewed and Anes Risks/Benef Reviewed Patient Risk: Low Procedure Risk: Low Anesthetic Plan Anesthetic Plan: GA Disposition: Standard PACU
[2025-05-16 09:54] VITALS: BP 130/83; PULSE 69; RESP 16; TEMP 36.8; O2SAT 99
[2025-05-16] MEDS: Lactated Ringers 1,000 ML 100 ML IVCONT (09:55)
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
--- NOTE | 2025-05-16 12:00 | W.PM.OPN ---
Operative Note Operative Note Date of Service: 05/16/25 Narrative: Procedure Description: EGD Indication: choking Anesthesia: MAC FLEXIBLE TRANSORAL UPPER GASTROINTESTINAL ENDOSCOPY UPPER ENDOSCOPY Consent: Indications for the procedure and potential complications of bleeding, perforation, reaction to medications and missed diagnosis were discussed with the patient and informed consent was obtained. Instrument: Olympus GIF H 190 J mid size upper endoscope Monitoring: Vital signs and clinical assessment, continuous EKG monitoring, Pulse oximetry, Carbon Dioxide monitoring and blood pressure monitoring were done throughout the procedure. Procedure: The patient was placed in the left lateral decubitis position and pre-procedure medications were administered and a bite block was placed. The endoscope was inserted into the mouth and advanced under direct vision to the third part of duodenum. A careful inspection was made as the upper endoscope was withdrawn including a retroflexed examination of the proximal stomach; Findings and interventions are described below. Findings: Larynx:normal Esophagus: GE junction at 44 cm, diaphragm hiatus at 44 cm, normal mucosa, bx taken from GEJ, distal and proximal esophagus- balloon dilation done at LES and UES to 20 mm, no tears seen Stomach: streaky erythema . Biopsies were obtained. Grade 2 flap valve on retroflexed examination of the cardia. Duodenum: Normal bulb and descending duodenum, Intervention: Biopsies as noted above, balloon dilation Impression/Findings: gastritis PLAN: await bx results GERD precautions
[2025-05-16 12:09] VITALS: BP 110/70; PULSE 80; RESP 16; TEMP 36.4; O2SAT 100
[2025-05-16 12:24] VITALS: BP 120/85; PULSE 76; RESP 16; TEMP 36.1; O2SAT 100
== END 2025-05-16 12:53 | disposition home or self-care (01) ==
PROVIDERS: PCP Nurse Practitioner Family; Visit Provider Internal Medicine Gastroenterology
PROC: (CPT 43249; principal; 2025-05-16 11:00)
DX: R13.10 Dysphagia, unspecified (principal); K29.60 Other gastritis without bleeding; K21.00 Gastro-esophageal reflux disease with esophagitis, without bleeding
CPT/HCPCS: 43249; 43239; 88305; 88313; 88342; J2003; J2704; J3010

== ENCOUNTER → 2025-05-16 08:51 | Outpatient (BNV) | payer BC, SELFPAY | PROVIDERS: PCP Nurse Practitioner Family; Visit Provider Internal Medicine Gastroenterology | DX: R13.10 Dysphagia, unspecified (principal); K29.70 Gastritis, unspecified, without bleeding | CPT/HCPCS: 43239; 43249 ==

== ENCOUNTER 2025-07-06 10:45 | Outpatient (REF) | payer BC, SELFPAY ==
[2025-07-06 13:14] LABS: MANUAL DIFF FLAG NO
[2025-07-06 13:26] LABS: Hematocrit 41.7 % (42.0-52.0); Hemoglobin 13.3 g/dl (14.0-18.0); Imm Gran Abs Auto 0.02 X10*3/uL (0.00-0.03); Imm Gran Pct Auto 0.4 % (0.0-0.4); Lymphocytes Absolute Auto 1.2 X10*3/uL (1.2-4.9); Mean Corpuscular HGB Conc 31.9 g/dl (31.0-36.0); Mean Corpuscular Hemoglobin 28.5 pg (27.0-33.0); Mean Corpuscular Volume 89.5 fL (80.0-98.0); NRBC Abs Auto 0.000 X10*3/uL (0.0-0.012); NRBC Pct Auto 0.0 /100WBC (0.0-0.2); Platelet Count 202 X10*3/uL (160-400); Red Blood Count 4.66 X10*6/uL (4.60-5.80); Reticulocytes Absolute 0.053 X10*6/uL (0.026-0.095); White Blood Count 5.1 X10*3/uL (4.8-10.8)
[2025-07-06 13:47] LABS: Alanine Aminotransferase 17 U/L (0-40); Albumin Level 4.3 g/dL (3.5-5.0); Alkaline Phosphatase 83 U/L (39-117); Anion Gap 10 (12-20); Aspartate Amino Transferase 21 U/L (5-37); Blood Urea Nitrogen 11 mg/dL (9-16); Calcium 9.0 mg/dL (8.4-10.2); Carbon Dioxide 29 mmol/L (22-29); Chloride 108 mmol/L (96-108); Estimated Glomerular Filt Rate > 60; Iron 49 mcg/dL (45-160); Percent Iron Saturation 21 % (15-50); Potassium 4.4 mmol/L (3.3-5.1); Sodium 143 mmol/L (135-145); Total Iron Binding Capacity 234 mcg/dL (228-428); Total Protein 6.8 g/dL (6.5-8.0); Unsaturated Iron Binding 185 ug/dL
[2025-07-06 14:06] LABS: Ferritin 134 ng/mL (20-250)
[2025-07-06 14:16] LABS: Folate 10.0 ng/mL (> or = 4.0); Vitamin B12 290 pg/mL (200-900)
== END 2025-07-06 10:46 | disposition home or self-care (01) ==
LOC: HO.HMGCLDS 10:45
PROVIDERS: PCP Nurse Practitioner Family; Visit Provider Nurse Practitioner Family
DX: D64.9 Anemia, unspecified (principal)
CPT/HCPCS: 36415; 80053; 82607; 82728; 82746; 83540; 83615; 85025; 85045